=== PATIENT | male | born 1945 | race Caucasian/White ===

== ENCOUNTER 2019-05-24 20:50 | Inpatient (IN) | payer OTHER, MEDICARE ==
[~2019-05-24] VITALS: Ht 190.5 cm; Wt 142.3 kg
[~2019-05-24 20:50] MED LIST: AMLO10 PO; AMLO5 PO; ASPI325 PO; ATOR10 PO; Ativan1 MG PO; CALC.25 PO; CLIN150 PO; Cosopt Plus10 ML BOTHEYES; DILT180 PO; DOC250 PO; FERR325 PO; FISH1000 PO; FURO40 PO; GABA300 PO; GABA600 PO; GLIP10 PO; GLIP5 PO; HYDCHL12.5 PO; INSULANI SC; LEVFLO500 PO; LEVSOD100 PO; LORA1 PO; METH10 PO; METO100 PO; METO50 PO; OMEG1CAP30 PO; OXYACE5T PO; PRAZ5 PO; ROSU10TA PO; SENN187 PO; SERT100 PO; WARF5 PO
[2019-05-24 21:10] LABS: Calcium, Ionized (POC) 1.19 mmol/L (1.10-1.46); Chloride (POC) 110 mmol/L (98-108); Creatinine (POC) 5.4 mg/dL (0.8-1.3); Glucose (ISTAT POC) 224 mg/dL (70-99); Hemoglobin (POC) 10.2 g/dL (13.5-17.5); Potassium (POC) 4.4 mmol/L (3.5-5.5); Sodium (POC) 141 mmol/L (135-148); Total CO2 (POC) 20 mmol/L (21-32)
[2019-05-24 21:16] LABS: BASOPHILS ABSOLUTE AUTO 0.02 K/mm3 (0.00-0.23); BASOPHILS PERCENT AUTO 0 % (0-2); EOSINOPHILS ABSOLUTE AUTO 0.26 K/mm3 (0.00-0.68); EOSINOPHILS PERCENT AUTO 3 % (0-6); Hematocrit 32.5 % (37.0-53.0); Hemoglobin 10.5 g/dL (13.5-17.5); IMMATURE GRAN ABSOLUTE AUTO 0.05 K/mm3 (0.00-0.10); IMMATURE GRAN PERCENT AUTO 1 % (0-1); LYMPHOCYTES PERCENT AUTO 14 % (21-46); MONOCYTES ABSOLUTE AUTO 0.63 K/mm3 (0.16-1.47); MONOCYTES PERCENT AUTO 6 % (4-13); Mean Corpuscular HGB 31.3 pg (26.0-34.0); Mean Corpuscular HGB Conc 32.3 g/dL (31.5-36.5); Mean Corpuscular Volume 97 fL (80-100); Mean Platelet Volume 11.9 fL (9.1-12.4); NEUTROPHILS ABSOLUTE AUTO 7.66 K/mm3 (1.96-9.15); NEUTROPHILS PERCENT AUTO 76 % (41-73); Platelet Count 114 K/mm3 (150-400); RDW Coefficient Variation 12.7 % (11.7-14.2); RDW Standard Deviation 44.8 fL (35.1-46.3); Red Blood Cell Count 3.36 M/mm3 (4.30-5.90); White Blood Cell Count 10.02 K/mm3 (4.00-11.30)
[2019-05-24 21:35] LABS: Alanine Aminotransfer (ALT/SGP 16 U/L (12-78); Albumin, Blood 3.1 g/dL (3.4-5.0); Albumin/Globulin Ratio 0.8 (0.8-1.8); Alk Phos 56 U/L (50-136); Anion Gap 12 mmol/L (6-16); Aspartate Aminotrans (AST/SGOT 14 U/L (12-37); Bilirubin, Total 0.2 mg/dL (0.1-1.0); Blood Urea Nitrogen 67 mg/dL (8-24); Bun/Creatinine Ratio 15.8 (12.0-20.0); CO2, Blood 19 mmol/L (21-32); Calcium, Blood 8.4 mg/dL (8.5-10.1); Chloride, Blood 112 mmol/L (98-108); Creatinine, Blood 4.23 mg/dL (0.60-1.20); Globulin, Blood 3.9 g/dL (2.2-4.0); Glomerular Filtration Rate 15 (60-); Glucose, Blood 230 mg/dL (70-99); Potassium, Blood 4.4 mmol/L (3.5-5.5); Sodium, Blood 143 mmol/L (136-145); Troponin I 0.048 ng/mL (0.000-0.040)
[2019-05-24] MEDS ORDERED: Aspir 8181 MG PO (21:35)
[2019-05-24] MEDS ORDERED: THERA-D2000 UNIT PO (21:36)
[2019-05-24] MEDS ORDERED: Zantac150 MG PO (21:36)
[2019-05-24] MEDS ORDERED: OXYC5 PO (21:38)
[2019-05-24] MEDS ORDERED: HYDR1TAB94 PO (21:41)
[2019-05-24] MEDS ORDERED: FURO40 PO (21:42)
[2019-05-24] MEDS ORDERED: Fergon240 M1 PO (21:44)
[2019-05-24 23:16] LABS: Uric Acid, Blood 7.4 mg/dL (3.5-7.2)
[2019-05-25 03:03] LABS: BASOPHILS ABSOLUTE AUTO 0.02 K/mm3 (0.00-0.23); BASOPHILS PERCENT AUTO 0 % (0-2); EOSINOPHILS ABSOLUTE AUTO 0.02 K/mm3 (0.00-0.68); EOSINOPHILS PERCENT AUTO 0 % (0-6); Hematocrit 31.7 % (37.0-53.0); IMMATURE GRAN ABSOLUTE AUTO 0.03 K/mm3 (0.00-0.10); IMMATURE GRAN PERCENT AUTO 0 % (0-1); LYMPHOCYTES ABSOLUTE AUTO 0.79 K/mm3 (0.84-5.20); LYMPHOCYTES PERCENT AUTO 9 % (21-46); MONOCYTES ABSOLUTE AUTO 0.64 K/mm3 (0.16-1.47); MONOCYTES PERCENT AUTO 7 % (4-13); Mean Corpuscular HGB 30.4 pg (26.0-34.0); Mean Corpuscular HGB Conc 31.5 g/dL (31.5-36.5); Mean Corpuscular Volume 96 fL (80-100); Mean Platelet Volume 11.5 fL (9.1-12.4); NEUTROPHILS ABSOLUTE AUTO 7.32 K/mm3 (1.96-9.15); NEUTROPHILS PERCENT AUTO 83 % (41-73); Platelet Count 103 K/mm3 (150-400); RDW Coefficient Variation 12.9 % (11.7-14.2); RDW Standard Deviation 45.1 fL (35.1-46.3); Red Blood Cell Count 3.29 M/mm3 (4.30-5.90); White Blood Cell Count 8.82 K/mm3 (4.00-11.30)
[2019-05-25 03:19] LABS: Albumin/Globulin Ratio 0.8 (0.8-1.8); Bilirubin, Total 0.2 mg/dL (0.1-1.0); Bun/Creatinine Ratio 15.5 (12.0-20.0); Calcium, Blood 8.5 mg/dL (8.5-10.1); Creatinine, Blood 4.45 mg/dL (0.60-1.20); Globulin, Blood 3.7 g/dL (2.2-4.0); Magnesium, Blood 2.5 mg/dL (1.6-2.4); Potassium, Blood 4.9 mmol/L (3.5-5.5); Total Protein, Blood 6.7 g/dL (6.4-8.2)
--- NOTE | 2019-05-25 07:38 | NUR ---
SHIFT SUMMARY: PT ARRIVED TO PCU 13 APPRX THIS AM AT 0330. PT A+O, LS CLEAR BUT DIMINISHED. VSS. PT ANSWERED ALL QUESTIONS APPROPRIATELY, DENIED PAIN OR DISCOMFORT. HAS BEEN RESTING QUIETLY SINCE RIGHT AFTER ADMIT. REPORT GIVEN TO ONCOMING RN WARD AND KLEVER SANDOVAL.
--- NOTE | 2019-05-25 11:09 | NUR ---
ECHOCARDIOGRAM COMPLETED
--- NOTE | 2019-05-25 11:51 | NUR ---
Reviewed records, per Echocardiogram May 2012, the pt was in normal sinus rhythm. The pt was admitted in March 2014 for new onset afib with RVR, and syncopal episode. He was started on antiocoagulants at this time. Spoke with JAIME Treadwell at the [facility] in [facility] clinic. She states that the pt's last EKG in 2016 shows sinus rhythm with first degree AV block and PVCs. States that per their records, the pt had been on coumadin in 2013, but that it had been discontinued by Dr. Montoya in April 2014 because the atrial fibrillation had resolved.
[2019-05-25 12:19] LABS: Adenovirus Not Detected (NOT DETECT); Coronavirus 229E Not Detected (NOT DETECT); Coronavirus HKU1 Not Detected (NOT DETECT); Coronavirus NL63 Not Detected (NOT DETECT); Coronavirus OC43 Not Detected (NOT DETECT); Human Metapneumovirus Not Detected (NOT DETECT); Human Rhinovirus/Enterovirus Not Detected (NOT DETECT); Influenza A Not Detected (NOT DETECT); Influenza A/2009-H1 Not Detected (NOT DETECT); Influenza A/H1 Not Detected (NOT DETECT); Influenza A/H3 Not Detected (NOT DETECT); Influenza B Not Detected (NOT DETECT); Parainfluenza Virus 1 Not Detected (NOT DETECT); Parainfluenza Virus 2 Not Detected (NOT DETECT); Parainfluenza Virus 3 Not Detected (NOT DETECT); Parainfluenza Virus 4 Not Detected (NOT DETECT); Respiratory Syncytial Virus Not Detected (NOT DETECT)
[2019-05-25 12:20] LABS: Bordetella pertussis Not Detected (NOT DETECT); Chlamydophila pneumoniae Not Detected (NOT DETECT); Mycoplasma pneumoniae Not Detected (NOT DETECT)
[2019-05-25 17:09] LABS: Source, Urine Clean Catch
[2019-05-25 17:35] LABS: Bilirubin, Urine Neg (Neg); Blood, Urine 4+ (Neg); Glucose Qualitative, Urine 3+ (Neg); Ketones, Urine Neg (Neg); Leukocyte Esterase, Urine Neg (Neg); Nitrite, Urine Neg (Neg); Protein, Urine 3+ (Neg); Specific Gravity, Urine 1.015 (1.003-1.022); Urobilinogen, Urine NORM (Normal)
--- NOTE | 2019-05-25 17:51 | NUR ---
IN TO VISIT, FOLLOWED BY SILK SCREEN CUTTER, RECOMMENDED PE TEST, COMPLETED, LARGE PT HARD TO STAND WITHOUT WALKER, 3l VIA NC, CALL LIGHT IN REACH, SALINE LOCKED, WILL CONTINUE TO MONTIOR AND TREAT UNTIL SBAR REPORT GIVEN TO PARLOR CHAPERONE
[2019-05-25 18:22] LABS: Appearance, Urine Clear (Clear); Color, Urine Yellow (P-Yellow)
[2019-05-25 18:23] LABS: Bacteria Mod /hpf; Mucus Light (0-Heavy); Red Blood Cells, Urine 0-2 /hpf (0-2); Squamous Epithelial Cells Few /hpf (Few)
[2019-05-26 04:21] LABS: BASOPHILS ABSOLUTE AUTO 0.02 K/mm3 (0.00-0.23); BASOPHILS PERCENT AUTO 0 % (0-2); EOSINOPHILS ABSOLUTE AUTO 0.19 K/mm3 (0.00-0.68); EOSINOPHILS PERCENT AUTO 3 % (0-6); Hematocrit 28.3 % (37.0-53.0); Hemoglobin 9.1 g/dL (13.5-17.5); IMMATURE GRAN ABSOLUTE AUTO 0.01 K/mm3 (0.00-0.10); IMMATURE GRAN PERCENT AUTO 0 % (0-1); LYMPHOCYTES ABSOLUTE AUTO 1.72 K/mm3 (0.84-5.20); LYMPHOCYTES PERCENT AUTO 29 % (21-46); MONOCYTES ABSOLUTE AUTO 0.47 K/mm3 (0.16-1.47); MONOCYTES PERCENT AUTO 8 % (4-13); Mean Corpuscular HGB 31.4 pg (26.0-34.0); Mean Corpuscular HGB Conc 32.2 g/dL (31.5-36.5); Mean Corpuscular Volume 98 fL (80-100); Mean Platelet Volume 11.9 fL (9.1-12.4); NEUTROPHILS ABSOLUTE AUTO 3.46 K/mm3 (1.96-9.15); NEUTROPHILS PERCENT AUTO 59 % (41-73); Platelet Count 82 K/mm3 (150-400); RDW Coefficient Variation 13.1 % (11.7-14.2); White Blood Cell Count 5.87 K/mm3 (4.00-11.30)
[2019-05-26 04:39] LABS: Bun/Creatinine Ratio 15.5 (12.0-20.0); Calcium, Blood 8.6 mg/dL (8.5-10.1); Creatinine, Blood 4.52 mg/dL (0.60-1.20); Potassium, Blood 4.3 mmol/L (3.5-5.5)
--- NOTE | 2019-05-26 04:51 | NUR ---
SHIFT SUMMARY: PATIENT VSS, CALL LIGHT WITHIN REACH AND USED APPROPRIATLY, TURNED O2 DOWN TO 1L/MIN WHILE SLEEPING. NO OTHER ISSUES NOTED.
--- NOTE | 2019-05-26 07:30 | NUR ---
ASSUMED CARE: PT RESTING QUIETLY, NO ACUTE NEEDS OR DISTRESS AT THIS TIME.
--- NOTE | 2019-05-26 14:00 | NUR ---
DR NEWMAN CAME TO SEE PT AND AWARE THAT PT WAS HAVING DIZZINESS WITH ACTIVITY. ORTHOS ORDERED AND RELAYED TO DR NEWMAN. DR ALSO AWARE THAT PT'S HR TOUCHED INTO 140S WITH ACTIVITY.
--- NOTE | 2019-05-26 16:01 | NUR ---
DR NEWMAN CALLED AND STATED SHE IS CANCELLING DC UNTIL DR MILLS CAN CONSULT. [facility]ART [facility] AWARE. DR MILLS HAS BEEN MADE AWARE OF CONSULT WELL. OT WORKED WITH PT AND NOTED SAME PATTERN OF INCREASE IN HR UP TO 150S WITH ACTIVITY. PT BACK TO BED, IV FLUIDS RUNNING PER ORDERS.
--- NOTE | 2019-05-26 17:42 | NUR ---
SHIFT SUMMARY: AWAITING DR MILLS CONSULT. PT WORKED WITH PT/OT THIS SHIFT AND BECAME TACHYCARDIC AND DYSPNEIC WITH ACTIVITY. PLAN IS FOR ZIO PATCH PRIOR TO DC. NO FURTHER NEEDS OR CONCERNS AT THIS TIME.
[2019-05-27 04:35] LABS: BASOPHILS ABSOLUTE AUTO 0.01 K/mm3 (0.00-0.23); BASOPHILS PERCENT AUTO 0 % (0-2); EOSINOPHILS ABSOLUTE AUTO 0.17 K/mm3 (0.00-0.68); EOSINOPHILS PERCENT AUTO 3 % (0-6); Hematocrit 28.3 % (37.0-53.0); IMMATURE GRAN ABSOLUTE AUTO 0.02 K/mm3 (0.00-0.10); IMMATURE GRAN PERCENT AUTO 0 % (0-1); LYMPHOCYTES PERCENT AUTO 20 % (21-46); MONOCYTES ABSOLUTE AUTO 0.46 K/mm3 (0.16-1.47); MONOCYTES PERCENT AUTO 8 % (4-13); Mean Corpuscular HGB Conc 31.8 g/dL (31.5-36.5); Mean Platelet Volume 11.5 fL (9.1-12.4); NEUTROPHILS ABSOLUTE AUTO 4.04 K/mm3 (1.96-9.15); NEUTROPHILS PERCENT AUTO 69 % (41-73); Platelet Count 85 K/mm3 (150-400); RDW Coefficient Variation 12.9 % (11.7-14.2); RDW Standard Deviation 43.9 fL (35.1-46.3)
--- NOTE | 2019-05-27 04:44 | NUR ---
SHIFT SUMMARY: PATIENT LEFT SHOULDER PAINFUL, HEATING PAD PROVIDED AND PATIENT STATED RELIEF. 24 HOUR URINE COLLECT STARTED AT APPROX 0000. PATIENT VSS, CALL LIGHT WITHIN REACH AND USED APPROPRIATLY, BED LOW AND LOCKED.
[2019-05-27 04:46] LABS: Mean Corpuscular Volume 94 fL (80-100)
[2019-05-27 04:55] LABS: Alanine Aminotransfer (ALT/SGP 19 U/L (12-78); Albumin, Blood 2.9 g/dL (3.4-5.0); Albumin/Globulin Ratio 0.9 (0.8-1.8); Alk Phos 46 U/L (50-136); Anion Gap 8 mmol/L (6-16); Aspartate Aminotrans (AST/SGOT 11 U/L (12-37); Bilirubin, Direct <0.1 mg/dL (0.0-0.3); Bilirubin, Indirect Unable to Calculate mg/dL (0.1-0.7); Bilirubin, Total 0.3 mg/dL (0.1-1.0); Blood Urea Nitrogen 75 mg/dL (8-24); Bun/Creatinine Ratio 16.9 (12.0-20.0); CO2, Blood 20 mmol/L (21-32); CPK Creatine Kinase 182 U/L (39-308); Calcium, Blood 8.7 mg/dL (8.5-10.1); Chloride, Blood 115 mmol/L (98-108); Creatinine, Blood 4.44 mg/dL (0.60-1.20); Globulin, Blood 3.3 g/dL (2.2-4.0); Glomerular Filtration Rate 14 (60-); Glucose, Blood 150 mg/dL (70-99); Magnesium, Blood 2.4 mg/dL (1.6-2.4); Phosphorus, Blood 5.3 mg/dL (2.5-4.9); Potassium, Blood 4.6 mmol/L (3.5-5.5); Sodium, Blood 143 mmol/L (136-145); Total Protein, Blood 6.2 g/dL (6.4-8.2); Uric Acid, Blood 6.9 mg/dL (3.5-7.2)
--- NOTE | 2019-05-27 17:32 | NUR ---
SUMMARY- PT ALERT AND ORIENTED X3, SLEEPY. FOLLOWS COMMANDS, SLOW, ABLE TO GET UP TO CHAIR X2 TODAY. PT HELD OFF THIS AM RELATED TO PERIODS OF HR INCERASING INTO 130'S. NO SYMPTOMS. CALLED DR SHIN WHO ASKED RN TO CALL CARDIO. CALLED ALEIDA AGAIN AND NOTIFIED THAT CARDIO SIGHNED OFF. RN INSTRUCTED TO CALL AGAIN IF HR INCREASED OVER 130- [id number] HR OVER 130 FOR 10 MINUTES AND SUBSIDED, DID NOT CALL RELATED TO SELF RESOLVE. PT TOLERATING FOOD AND FLUIDS. COLLECTING 24HR URINE UNTIL 05/27 2345. NS @75. NO SYNCOPAL EPISODES TODAY. LUNGS CLEAR, LE EDEMA +2. PAIN IN R HIP AND L SHOULDER 3/10 MOST OF THE DAY. MEDICATED ONCE VICODIN IN AM WITH RELEIF, THE REST OF THE DAY PT DECLINES PAIN MEDS.
[2019-05-28 01:52] LABS: Protein, Urine Quantitative 57.5 mg/dL (0.0-11.9)
--- NOTE | 2019-05-28 03:01 | NUR ---
ASSUMED CARE APPROXIMATELY 1900; PT A&O; PT USES URINAL IN BED HE REPORTS SOME HESITATION STANDING DUE TO HX OF SYNCOPAL EPISODE AT HOME; C/O CHRONIC HIP PAIN; PT REPOSITIONED AND MEDICATION PER ORDERS; DENIES CHEST PAIN; PT ON CURRENTLY ON RA W/ O2 SATS >92; VSS; 24 HOUR URINE COLLECTION COMPLETED @ 2345; 1500 ML TOTAL OUTPUT; PT DENIED REPOSTITIONING AT TIMES; SLEPT FOR GREATER THAN 6 HOURS IN BETWEEN INTERVENTIONS; CALL LIGHT IN REACH; BED IN LOWEST POSITION; WILL CONTINUE TO MONITOR AND ASSESS UNTIL HAND OFF TO DAY SHIFT RN.
[2019-05-28 04:35] LABS: BASOPHILS ABSOLUTE AUTO 0.02 K/mm3 (0.00-0.23); BASOPHILS PERCENT AUTO 0 % (0-2); EOSINOPHILS ABSOLUTE AUTO 0.14 K/mm3 (0.00-0.68); EOSINOPHILS PERCENT AUTO 3 % (0-6); Hematocrit 27.3 % (37.0-53.0); Hemoglobin 8.7 g/dL (13.5-17.5); IMMATURE GRAN ABSOLUTE AUTO 0.03 K/mm3 (0.00-0.10); IMMATURE GRAN PERCENT AUTO 1 % (0-1); LYMPHOCYTES ABSOLUTE AUTO 1.02 K/mm3 (0.84-5.20); LYMPHOCYTES PERCENT AUTO 18 % (21-46); MONOCYTES ABSOLUTE AUTO 0.41 K/mm3 (0.16-1.47); MONOCYTES PERCENT AUTO 7 % (4-13); Mean Corpuscular HGB 30.9 pg (26.0-34.0); Mean Corpuscular HGB Conc 31.9 g/dL (31.5-36.5); Mean Platelet Volume 11.8 fL (9.1-12.4); NEUTROPHILS ABSOLUTE AUTO 3.97 K/mm3 (1.96-9.15); NEUTROPHILS PERCENT AUTO 71 % (41-73); Platelet Count 85 K/mm3 (150-400); Red Blood Cell Count 2.82 M/mm3 (4.30-5.90); White Blood Cell Count 5.59 K/mm3 (4.00-11.30)
[2019-05-28 04:47] LABS: Mean Corpuscular Volume 97 fL (80-100)
[2019-05-28 04:56] LABS: Albumin, Blood 2.8 g/dL (3.4-5.0); Anion Gap 8 mmol/L (6-16); Blood Urea Nitrogen 65 mg/dL (8-24); Bun/Creatinine Ratio 16.7 (12.0-20.0); CO2, Blood 18 mmol/L (21-32); Calcium, Blood 8.4 mg/dL (8.5-10.1); Chloride, Blood 115 mmol/L (98-108); Creatinine, Blood 3.89 mg/dL (0.60-1.20); Glomerular Filtration Rate 16 (60-); Glucose, Blood 151 mg/dL (70-99); Magnesium, Blood 2.3 mg/dL (1.6-2.4); Phosphorus, Blood 4.6 mg/dL (2.5-4.9); Potassium, Blood 4.3 mmol/L (3.5-5.5); Sodium, Blood 141 mmol/L (136-145)
--- NOTE | 2019-05-28 08:09 | NUR ---
AM NOTE. ASSUMED CARE OF PT APROX 0700. PT IS A&Ox4 AND HAS A FLAT AFFECT. PT WAS ADMITTED FOR CHF EXAC, AND HAS AFIB W/BBB, PT IS CURRENTLY IN THE 120'S-130'S. PT'S HR INCREASED TO THE 150'S-160'S WHEN HE GOT UP TO THE CHAIR FROM BED. PT'S OTHER VS STABLE AT THIS TIME, PT STATES HE FELT A LITTLE "OUT OF BREATH" BUT NO DIZZINESS OR LIGHTHEADEDNESS NOTED. PT'S HR TRENDED BACK DOWN TO THE 120'S AFTER APROX 2 MINS OF REST IN THE CHAIR. PT'S RIGHT LEG HAS 1+ EDEMA, PT'S LLE HAS TRACE. L/S CLEAR T/O, PT IS ON RA WITH O2 SATS >95%. BT PRESENT AND NORMOACITVE, ABD IS SLIGHTLY FIRM AND NONTENDER TO PALP. WILL CONTINUE TO MONITOR.
--- NOTE | 2019-05-28 17:46 | NUR ---
SHIFT SUMMARY. PT'S VS HAVE BEEN STABLE T/O SHIFT EXCEPT HIS HEART RATE. PT IS IN AFIB W/BBB, PT HAS BEEN MAINTAINING RATES IN THE 90'S-110'S EXCEPT WITH ACTIVITY HIS HEART RATE INCREASES TO THE 130'S-150'S. PROVIDER WAS MADE AWARE OF THIS AND ORDERED CARDIZEM IV PUSH AND GTT IF HIS RATE DID NOT IMPROVE. PT'S RATE IMPROVED AFTER THE PUSH SO THE DRIP WAS NOT STARTED. PT HAS BEEN GETTING UP IN TO THE CHAIR FOR MEALS AND USING THE COMMODE. PT HAS NOT HAD A BM THIS SHIFT, PT C/O ABOUT FEELING "STOPPED UP." PROVIDER AWARE AND ADDITIONAL ORDERS OBTAINED. PT DENIES ANY CHEST PAIN/PRESSURE, N/V OR INCREASED SOB. PT HAS BEEN ON RA T/O SHIFT. CALL LIGHT IN REACH, BED IS LOCKED AND LOW WILL CONTINUE TO MONITOR UNTIL REPORT IS GIVEN TO ONCOMING RN.
--- NOTE | 2019-05-28 18:31 | NUR ---
PT UPDATE... PT WAS PLACED ON CARDIZEM GTT D/T THE PT'S INCREASED HEART RATE OF 150'S-160'S WITH ACTIVITY. WILL CONTINUE TO MONITOR.
[2019-05-29 04:17] LABS: BASOPHILS ABSOLUTE AUTO 0.01 K/mm3 (0.00-0.23); BASOPHILS PERCENT AUTO 0 % (0-2); EOSINOPHILS ABSOLUTE AUTO 0.15 K/mm3 (0.00-0.68); EOSINOPHILS PERCENT AUTO 3 % (0-6); Hematocrit 27.2 % (37.0-53.0); Hemoglobin 8.8 g/dL (13.5-17.5); IMMATURE GRAN ABSOLUTE AUTO 0.02 K/mm3 (0.00-0.10); IMMATURE GRAN PERCENT AUTO 0 % (0-1); LYMPHOCYTES ABSOLUTE AUTO 0.82 K/mm3 (0.84-5.20); LYMPHOCYTES PERCENT AUTO 15 % (21-46); MONOCYTES PERCENT AUTO 7 % (4-13); Mean Corpuscular HGB 31.3 pg (26.0-34.0); Mean Corpuscular HGB Conc 32.4 g/dL (31.5-36.5); Mean Corpuscular Volume 97 fL (80-100); Mean Platelet Volume 11.9 fL (9.1-12.4); NEUTROPHILS ABSOLUTE AUTO 4.07 K/mm3 (1.96-9.15); NEUTROPHILS PERCENT AUTO 74 % (41-73); Platelet Count 87 K/mm3 (150-400); RDW Coefficient Variation 13.1 % (11.7-14.2); RDW Standard Deviation 45.9 fL (35.1-46.3); Red Blood Cell Count 2.81 M/mm3 (4.30-5.90); White Blood Cell Count 5.47 K/mm3 (4.00-11.30)
[2019-05-29 04:37] LABS: Albumin, Blood 2.8 g/dL (3.4-5.0); Anion Gap 8 mmol/L (6-16); Blood Urea Nitrogen 57 mg/dL (8-24); Bun/Creatinine Ratio 15.8 (12.0-20.0); CO2, Blood 19 mmol/L (21-32); Calcium, Blood 8.6 mg/dL (8.5-10.1); Chloride, Blood 114 mmol/L (98-108); Glomerular Filtration Rate 18 (60-); Glucose, Blood 165 mg/dL (70-99); Potassium, Blood 4.1 mmol/L (3.5-5.5); Sodium, Blood 141 mmol/L (136-145)
--- NOTE | 2019-05-29 06:34 | NUR ---
SHIFT SUMMARY PT HAS REMAINED AOX4 THROUGHOUT SHIFT. PLEASANT AND COOPERATIVE WITH CARE. PT HAS RESTED IN BED THROUGHOUT THE NIGHT AND APPEARS TO HAVE SLEPT WELL. O2 SATS HAVE REMAINED >90% ON RA. HEART RHYTHM HAS REMAINED IN AFIB THROUGHOUT THE NIGHT WITH RATE RANGING FROM 90s-130s. CARDIZEM DRIP REMAINS INFUSING AND TITRATED PER PROTOCOL. PT CONTINUES TO USE URINAL WITH MINIMAL ASSISTANCE IN BED. PT DOES REQUIRE ENCOURAGEMENT TO ASSIST WITH ADLs AND MOVEMENT TOLERATED. PT MEDICATED ONCE FOR PAIN THAT DECREASED WITH ORDERED MEDICATIONS. NO OTHER CHANGES NOTED FROM INITIAL ASSESSMENT, WILL CONTINUE TO MONITOR AND REPORT TO ONCOMING SHIFT RN. BED IN LOW POSITION,CALL LIGHT IN REACH.
--- NOTE | 2019-05-29 07:57 | NUR ---
AM NOTE. ASSUMED CARE OF PT APROX 0700, PT IS A&Ox4 AND WAS ADMITTED FOR SYNCOPE AND A FALL AT HOME. PT WAS FOUND TO BE IN AFIB W/BBB, PT IS CURRENTLY ON A CARDIZEM GTT AT 10MG/HR, PT IS TOLERATING THIS WELL, PT'S BP WAS 130/88 HR 117. PT HAS 1+ EDEMA TO HIS BLE, THIS HAS IMPROVED FROM YESTERDAY. PT HAS NOT HAD BM SINCE 05/25, BOWEL CARE STARTED, WILL CONTINUE TO MONITOR. BT PRESENT AND HYPOACTIVE, ABD IS SLIGHTLY FIRM BUT NONTENDER TO PALP. L/S CLEAR AND DIM T/O, PT IS ON RA WITH O2 SATS >94%. WILL CONTINUE TO MONITOR.
--- NOTE | 2019-05-29 14:00 | NUR ---
Initial Visit: Palliative Care Consult for AD/POLST and Advanced Care Planning. Pt is A&Ox4 and reports a tolerable 3/10 pain in his chest when he breathes. Pt denies dyspnea and anxiety at this time. Engaged in therapeutic discussion regarding Advanced Care Planning and AD/POLST. Pt lives at home alone and his friend Chrissy comes to his house and helps with needs. Pt reports struggling with bathing and has difficulty getting in and out of bath tub. Pt reports he is safe with dressing. Pt reports using a cane or a walker when ambulating. Educated Pt on disease process and the importance of routine conversations with PCP in order to plan accordingly. Discussed AD/POLST and Pt is unsure if he has completed one. [facility]. Instruced Pt a request will be faxed and Pt is agreeable to completing AD/POLST if [facility] does not have one. Pt reports no other concerns at this time. Spoke with bedside nurse Ryann and discussed case. Ryann reports no concerns at this time. Palliative Care will remain available.
--- NOTE | 2019-05-29 18:10 | NUR ---
SHIFT SUMMARY. NO ACUTE NEGATIVE CHANGES NOTED THIS SHIFT. PT IS ON CARDIZEM GTT AT 5MG/HR WITH RATE IN THE 80'S-90'S. PT'S BP IS STABLE. PT GOT UP AND WALKED INTO THE BATHROOM FOR A SHOWER TODAY, PT TOLERATED THIS WELL. PT'S DAUGHTER WAS AT THE BEDSIDE FOR A FEW HOURS TODAY. PT DENIES ANY CHEST PAIN/PRESSURE, N/V OR INCREASED SOB. PT HAS BEEN ON RA T/O SHIFT. CALL LIGHT IN REACH, BED IS LOCKED AND LOW WILL CONTINUE TO MONITOR UNTIL REPORT IS GIVEN TO ONCOMING RN.
[2019-05-30 04:14] LABS: BASOPHILS ABSOLUTE AUTO 0.02 K/mm3 (0.00-0.23); BASOPHILS PERCENT AUTO 0 % (0-2); EOSINOPHILS ABSOLUTE AUTO 0.23 K/mm3 (0.00-0.68); EOSINOPHILS PERCENT AUTO 4 % (0-6); Hematocrit 26.5 % (37.0-53.0); Hemoglobin 8.5 g/dL (13.5-17.5); IMMATURE GRAN ABSOLUTE AUTO 0.02 K/mm3 (0.00-0.10); IMMATURE GRAN PERCENT AUTO 0 % (0-1); LYMPHOCYTES ABSOLUTE AUTO 0.92 K/mm3 (0.84-5.20); LYMPHOCYTES PERCENT AUTO 16 % (21-46); MONOCYTES ABSOLUTE AUTO 0.46 K/mm3 (0.16-1.47); MONOCYTES PERCENT AUTO 8 % (4-13); Mean Corpuscular HGB 30.6 pg (26.0-34.0); Mean Corpuscular HGB Conc 32.1 g/dL (31.5-36.5); Mean Corpuscular Volume 95 fL (80-100); Mean Platelet Volume 11.9 fL (9.1-12.4); NEUTROPHILS ABSOLUTE AUTO 3.95 K/mm3 (1.96-9.15); NEUTROPHILS PERCENT AUTO 71 % (41-73); Platelet Count 93 K/mm3 (150-400); RDW Coefficient Variation 13.3 % (11.7-14.2); RDW Standard Deviation 46.1 fL (35.1-46.3); Red Blood Cell Count 2.78 M/mm3 (4.30-5.90)
[2019-05-30 04:31] LABS: Albumin, Blood 2.7 g/dL (3.4-5.0); Anion Gap 8 mmol/L (6-16); Blood Urea Nitrogen 56 mg/dL (8-24); Bun/Creatinine Ratio 15.4 (12.0-20.0); CO2, Blood 19 mmol/L (21-32); Calcium, Blood 8.4 mg/dL (8.5-10.1); Chloride, Blood 114 mmol/L (98-108); Creatinine, Blood 3.64 mg/dL (0.60-1.20); Glomerular Filtration Rate 18 (60-); Glucose, Blood 147 mg/dL (70-99); Phosphorus, Blood 3.4 mg/dL (2.5-4.9); Potassium, Blood 4.4 mmol/L (3.5-5.5); Sodium, Blood 141 mmol/L (136-145)
--- NOTE | 2019-05-30 05:46 | NUR ---
SHIFT SUMMARY PT HAS REMAINED AOX4 THROUGHOUT SHIFT. VSS. PLEASANT AND COOPERATIVE WITH CARE. PT HAS RESTED WELL THROUGHOUT THE NIGHT, WAKING EASILY FOR CARE AND VITAL SIGNS. AMBULATED WELL WITH ONE PERSON ASSIST AND FWW TO THE BEDSIDE COMMODE FOR BM WITH SUCCESS. PT REPORTS THAT HE FEELS MUCH BETTER AND DOES NOT HAVE ANY MORE ABDOMINAL PAIN AFTER BOWEL MOVEMENT. HEART RHYTHM HAS REMAINED IN ATRIAL FIBRILLATION WITH A RATE IN THE 80-90s SINCE APPROXIMATELY 2300 LAST NIGHT. CARDIZEM DRIP PLACED ON STANDBY AT 2330 LAST NIGHT. O2 SATS HAVE REMAINED >90% ON RA, PT DENIES DYSPNEA. MEDICATED ONCE FOR PAIN TO R HIP THAT DECREASED WITH ORDERED PAIN MEDICATION AND REPOSITIONING. CONTINUES TO USE URINAL INDEPENDENTLY IN BED. NO OTHER CHANGES NOTED FROM INITIAL ASSESSMENT. WILL CONTINUE TO MONITOR AND REPORT TO ONCOMING SHIFT RN. BED IN LOW POSITION, CALL LIGHT IN REACH.
[2019-05-30 08:08] LABS: ANTIGLOMERULAR BM AB 2 units (0-20)
--- NOTE | 2019-05-30 08:15 | NUR ---
AM NOTE. ASSUMED CARE OF PT APROX 0700. PT IS A&Ox4 AND WAS ADMITTED FOR SYNCOPE. PT IS POSSIBLE D/C HOME TODAY. PT IS IN AFIB WITH RATE CONTROLLED NOW ON PO MEDICATIONS. PT'S HR IS 90'S-100'S PER SHERIFF DETECTIVE. PT'S VS STABLE, PT DENIES CHEST PAIN/PRESSURE, N/V OR SOB. PT ALSO DENIES ANY LIGHTHEADED/DIZZNESS. PT LIVES AT HOME ALONE WITH HELP FROM A FRIEND THAT STOPS BY "EVERY ONCE IN A WHILE" AND HELPS OUT. PT IS UP IN THE CHAIR HAVING BREAKFAST THIS AM. WILL CONTINUE TO MONITOR.
[2019-05-30 16:06] LABS: A/G RATIO 1.3 (0.7-1.7); ALBUMIN 3.3 g/dL (2.9-4.4); ALPHA-1-GLOBULIN 0.2 g/dL (0.0-0.4); ALPHA-2-GLOBULIN 0.6 g/dL (0.4-1.0); BETA GLOBULIN 0.7 g/dL (0.7-1.3); GLOBULIN, TOTAL 2.6 g/dL (2.2-3.9); IMMUNOGLOBULIN A, QN, SERUM 136 mg/dL (61-437); IMMUNOGLOBULIN G, QN, SERUM 945 mg/dL (700-1600); IMMUNOGLOBULIN M, QN, SERUM 36 mg/dL (15-143); M-SPIKE 0.3 g/dL (Not Observed); PROTEIN, TOTAL, SERUM 5.9 g/dL (6.0-8.5)
--- NOTE | 2019-05-30 17:44 | NUR ---
SHIFT SUMMARY. NO ACUTE NEGATIVE CHANGES NOTED. PT'S HR HAS BEEN CONTROLLED IN THE 80'S-100'S. PT DENIES ANY CHEST PAIN/PRESSURE, N/V OR INCREASED SOB. PT DENIES ANY LIGHTHEADED/DIZZINESS WELL. PT IS TO D/C TO SNF TOMORROW. PT IS TO HAVE ZIO PATCH DELIVERED FROM THE [facility] PRIOR TO D/C. PT'S VS HAVE BEEN STABLE. CALL LIGHT IN REACH, BED IS LOCKED AND LOW WILL CONTINUE TO MONITOR UNTIL REPORT IS GIVEN TO ONCOMING RN.
--- NOTE | 2019-05-30 18:05 | NUR ---
PT UPDATE... ORDER FOR ZIO PATCH/MONITOR FAXED TO [facility]ART [facility], PT IS TO HAVE ZIO PATCH PRIOR TO D/C TO SNF TOMORROW. WILL CONTINUE TO MONITOR.
[2019-05-31 03:45] LABS: BASOPHILS ABSOLUTE AUTO 0.01 K/mm3 (0.00-0.23); BASOPHILS PERCENT AUTO 0 % (0-2); EOSINOPHILS ABSOLUTE AUTO 0.27 K/mm3 (0.00-0.68); EOSINOPHILS PERCENT AUTO 4 % (0-6); Hematocrit 27.8 % (37.0-53.0); Hemoglobin 8.9 g/dL (13.5-17.5); IMMATURE GRAN ABSOLUTE AUTO 0.03 K/mm3 (0.00-0.10); IMMATURE GRAN PERCENT AUTO 1 % (0-1); LYMPHOCYTES ABSOLUTE AUTO 1.34 K/mm3 (0.84-5.20); LYMPHOCYTES PERCENT AUTO 21 % (21-46); MONOCYTES ABSOLUTE AUTO 0.61 K/mm3 (0.16-1.47); MONOCYTES PERCENT AUTO 9 % (4-13); Mean Corpuscular HGB 30.7 pg (26.0-34.0); Mean Corpuscular Volume 96 fL (80-100); Mean Platelet Volume 11.7 fL (9.1-12.4); NEUTROPHILS ABSOLUTE AUTO 4.24 K/mm3 (1.96-9.15); NEUTROPHILS PERCENT AUTO 65 % (41-73); Platelet Count 107 K/mm3 (150-400); RDW Coefficient Variation 13.3 % (11.7-14.2); RDW Standard Deviation 46.4 fL (35.1-46.3)
[2019-05-31 04:04] LABS: Albumin, Blood 2.8 g/dL (3.4-5.0); Anion Gap 6 mmol/L (6-16); Blood Urea Nitrogen 59 mg/dL (8-24); Bun/Creatinine Ratio 15.4 (12.0-20.0); CO2, Blood 20 mmol/L (21-32); Calcium, Blood 8.8 mg/dL (8.5-10.1); Chloride, Blood 115 mmol/L (98-108); Creatinine, Blood 3.83 mg/dL (0.60-1.20); Glomerular Filtration Rate 17 (60-); Glucose, Blood 147 mg/dL (70-99); Phosphorus, Blood 3.8 mg/dL (2.5-4.9); Potassium, Blood 4.8 mmol/L (3.5-5.5); Sodium, Blood 141 mmol/L (136-145)
--- NOTE | 2019-05-31 06:43 | NUR ---
SHIFT SUMMARY PT HAS REMAINED AOX4 THROUGHOUT SHIFT. VSS. PLEASANT AND COOPERATIVE WITH CARE. HEART RHYTHM HAS REMAINED IN ATRIAL FIBRILLATION WITH A RATE RANGING FROM 80-100s. O2 SATS HAVE REMAINED >90% ON RA. PT MEDICATED ONCE FOR PAIN TO HIP THAT DECREASED WITH ORDERED MEDICATION AND REPOSITIONING. PT CONTINUES TO REQUIRE ENCOURAGEMENT AND MOTIVATION TO PERFORM ADLs AND TURNING SELF IN BED TO PRESERVE SKIN INTEGRITY. NO OTHER CHANGES NOTED FROM INITIAL ASSESSMENT. WILL CONTINUE TO MONITOR AND REPORT TO ONCOMING SHIFT RN. BED IN LOW POSITION, CALL LIGHT IN REACH.
--- NOTE | 2019-05-31 10:45 | NUR ---
COMPLAINED OF CP when woken up (kept falling asleep), stated that it has been on going since coming to hospital, checked vs, informed dr received orders, performed ekg placed in front of chart, no significant changes noted, gave nitro after one dose pain resolved, bed in low position, pt resting quietly, call light in reach, will continue to monitor and treat
[2019-05-31 14:07] LABS: ANA DIRECT Negative (Negative); ANTIMYELOPEROXIDASE (MPO) ABS <9.0 U/mL (0.0-9.0); ANTIPROTEINASE 3 (PR-3) ABS <3.5 U/mL (0.0-3.5); ATYPICAL PANCA <1:20 titer (Neg:<1:20); CYTOPLASMIC (C-ANCA) <1:20 titer (Neg:<1:20); PERINUCLEAR (P-ANCA) <1:20 titer (Neg:<1:20)
[2019-05-31] MEDS ORDERED: METO25 PO (16:09)
[2019-05-31] MEDS ORDERED: NITR.4SL SL (16:12)
[2019-05-31] MEDS ORDERED: SODBIC650 PO (16:13)
--- NOTE | 2019-05-31 16:59 | NUR ---
left with transport via stretcher, belongings and paperwork with him, tele and iv (whole) discontinued, information r\medication, visit, treatments, recovery reviewed and sent with pt, alert and orintated, 2 person transfer (pivoted to stretcher with 2 person assist), alva called and SBAR report given, included was reminder to follow up with sleep study and heart monitor on chest
[2019-06-08 14:29] LABS: M-SPIKE, % Not Observed % (Not Observed); PROTEIN,TOTAL,URINE 37.4 mg/dL (Not Estab.)
== END 2019-05-31 16:47 | DRG 683 ==
LOC: ER 20:50 → PCU 20:51 → ERHOLD 20:51 → PCU 05-25 03:26
PROVIDERS: Emergency Medicine; Family Medicine; Internal Medicine; Internal Medicine Nephrology; Nurse Practitioner Acute Care; ADMIT Internal Medicine
DX: N17.9 Acute kidney failure, unspecified (principal); E87.2 Acidosis; I48.20 Chronic atrial fibrillation, unspecified; E86.0 Dehydration; N18.4 Chronic kidney disease, stage 4 (severe); E11.22 Type 2 diabetes mellitus with diabetic chronic kidney disease; E11.21 Type 2 diabetes mellitus with diabetic nephropathy; D63.1 Anemia in chronic kidney disease; I12.9 Hypertensive chronic kidney disease with stage 1 through stage 4 chronic kidney disease, or unspecified chronic kidney disease; N25.81 Secondary hyperparathyroidism of renal origin; D69.6 Thrombocytopenia, unspecified; E78.2 Mixed hyperlipidemia; E03.9 Hypothyroidism, unspecified; J44.9 Chronic obstructive pulmonary disease, unspecified; E66.9 Obesity, unspecified; G89.29 Other chronic pain; M54.9 Dorsalgia, unspecified; I27.20 Pulmonary hypertension, unspecified; E88.09 Other disorders of plasma-protein metabolism, not elsewhere classified; E86.9 Volume depletion, unspecified; E11.40 Type 2 diabetes mellitus with diabetic neuropathy, unspecified; K21.9 Gastro-esophageal reflux disease without esophagitis; F41.1 Generalized anxiety disorder; R55 Syncope and collapse; I71.2 Thoracic aortic aneurysm, without rupture; F43.10 Post-traumatic stress disorder, unspecified; F32.9 Major depressive disorder, single episode, unspecified; E83.39 Other disorders of phosphorus metabolism; Z66 Do not resuscitate; Z87.891 Personal history of nicotine dependence; Z85.46 Personal history of malignant neoplasm of prostate; Z79.84 Long term (current) use of oral hypoglycemic drugs; Z79.82 Long term (current) use of aspirin; Z79.899 Other long term (current) drug therapy
CPT/HCPCS: 0099U; 36415; 70450; 71046; 76770; 78582; 80047; 80048; 80053; 80069; 81001; 81050; 82248; 82550; 82784; 82947; 83516; 83520; 83735; 83880; 84100; 84156; 84165; 84166; 84484; 84550; 85014; 85025; 86038; 86256; 86334; 86335; 87086; 93005; 93010; 93306; 94640; 94760; 94762; 96372; 97110; 97116; 97162; 97166; 97530; 97535; 99285-25; A9270; A9270-GY; A9540; A9558; G0378; J0881; J1644; J7030

== ENCOUNTER → 2019-07-04 | Outpatient (CLI) | payer MEDICARE ==
[~2019-07-04] MED LIST changes: +Aspir 8181 MG PO; +Fergon240 M1 PO; +HYDCHL25 PO; +HYDR1TAB94 PO; +METO25 PO; +NITR.4SL SL; +OXYC5 PO; +SODBIC650 PO; +THERA-D2000 UNIT PO; +Zantac150 MG PO
[2019-07-04 07:36] LABS: Bun/Creatinine Ratio 9.4 (12.0-20.0); Calcium, Blood 8.8 mg/dL (8.5-10.1); Creatinine, Blood 3.72 mg/dL (0.60-1.20); Potassium, Blood 5.1 mmol/L (3.5-5.5)
== END | disposition home or self-care (01) ==
LOC: LAB RH 07:19 → EDSTATUS 09:49
PROVIDERS: Nurse Practitioner Adult Health
DX: I12.9 Hypertensive chronic kidney disease with stage 1 through stage 4 chronic kidney disease, or unspecified chronic kidney disease (principal); N18.9 Chronic kidney disease, unspecified
CPT/HCPCS: 80048

== ENCOUNTER 2019-08-13 16:46 | Inpatient (IN) | payer OTHER, MEDICARE ==
[~2019-08-13] VITALS: Ht 190.5 cm; Wt 136.9 kg
[~2019-08-13 16:46] MED LIST changes: -HYDCHL25 PO
[2019-08-13 17:30] LABS: BASOPHILS ABSOLUTE AUTO 0.03 K/mm3 (0.00-0.23); BASOPHILS PERCENT AUTO 0 % (0-2); EOSINOPHILS ABSOLUTE AUTO 0.14 K/mm3 (0.00-0.68); EOSINOPHILS PERCENT AUTO 2 % (0-6); Hematocrit 40.9 % (37.0-53.0); Hemoglobin 12.7 g/dL (13.5-17.5); IMMATURE GRAN ABSOLUTE AUTO 0.03 K/mm3 (0.00-0.10); IMMATURE GRAN PERCENT AUTO 0 % (0-1); LYMPHOCYTES ABSOLUTE AUTO 0.89 K/mm3 (0.84-5.20); LYMPHOCYTES PERCENT AUTO 13 % (21-46); MONOCYTES ABSOLUTE AUTO 0.56 K/mm3 (0.16-1.47); MONOCYTES PERCENT AUTO 8 % (4-13); Mean Corpuscular HGB 30.9 pg (26.0-34.0); Mean Corpuscular HGB Conc 31.1 g/dL (31.5-36.5); Mean Corpuscular Volume 100 fL (80-100); Mean Platelet Volume 11.5 fL (9.1-12.4); NEUTROPHILS ABSOLUTE AUTO 5.22 K/mm3 (1.96-9.15); NEUTROPHILS PERCENT AUTO 76 % (41-73); Platelet Count 126 K/mm3 (150-400); RDW Coefficient Variation 14.4 % (11.7-14.2); RDW Standard Deviation 51.8 fL (35.1-46.3); Red Blood Cell Count 4.11 M/mm3 (4.30-5.90); White Blood Cell Count 6.87 K/mm3 (4.00-11.30)
[2019-08-13 17:44] LABS: Albumin, Blood 3.3 g/dL (3.4-5.0); Albumin/Globulin Ratio 0.8 (0.8-1.8); Bilirubin, Total 0.6 mg/dL (0.1-1.0); Bun/Creatinine Ratio 11.8 (12.0-20.0); Calcium, Blood 9.2 mg/dL (8.5-10.1); Creatinine, Blood 3.98 mg/dL (0.60-1.20); Potassium, Blood 4.9 mmol/L (3.5-5.5); Total Protein, Blood 7.3 g/dL (6.4-8.2)
[2019-08-13 18:10] LABS: Source, Urine Clean Catch
[2019-08-13 18:16] LABS: Bilirubin, Urine Neg (Neg); Blood, Urine 4+ (Neg); Glucose Qualitative, Urine 2+ (Neg); Ketones, Urine 3+ (Neg); Leukocyte Esterase, Urine 3+ (Neg); Nitrite, Urine Neg (Neg); Protein, Urine 4+ (Neg); Specific Gravity, Urine 1.015 (1.003-1.022); Urobilinogen, Urine NORM (Normal)
[2019-08-13 18:32] LABS: Appearance, Urine Cloudy (Clear); Color, Urine Yellow (P-Yellow)
[2019-08-13 18:34] LABS: White Blood Cells, Urine TNTC /hpf (0-5)
[2019-08-13 18:35] LABS: Bacteria Many /hpf; Squamous Epithelial Cells Few /hpf (Few)
[2019-08-13] MEDS ORDERED: HYDCHL25 PO (21:27)
[2019-08-14] MEDS ORDERED: SERT100 PO (01:10)
--- NOTE | 2019-08-14 05:04 | NUR ---
QUALITY CONTROL OPERATOR SUMMARY NEW ADMIT FROM THE ED MICKIE. PT AAOX4 AND PLEASANT. BEDBOUND AT BASELINE. COMES IN WITH WEAKNESS AND FAILURE TO THRIVE. PT STATES HE HAS A FRIEND WHO IS HIS MAIN CAREGIVER BUT STATED SHE HAS BEEN SICK THE LAST 2 DAYS AND HAS NOT BEEN ABLE TO ASSIST HIM. DUE TO PT BEING BEDBOUND, PT HAS SPENT LAST 2 DAYS AT HOME ALONE WITH NO WAY TO GET FOOD/WATER. PT ALSO STATES HE HAS WOOD HEAT AT HOME AND HAS NOT BEEN ABLE TO HEAT HIS HOME. CBG 59 WHEN PT ARRIVED TO FLOOR, GIVEN ORANGE JUICE. CBG RECHECK 92. PT HAS BEEN INCONTINENT OF STOOL BUT IS ABLE TO USE URINAL. RESTARTED ON HOME MEDS PT HAS NOT TAKEN MEDS IN 2-3 DAYS. VSS, WILL CONTINUE TO MONITOR.
[2019-08-14 05:37] LABS: BASOPHILS ABSOLUTE AUTO 0.02 K/mm3 (0.00-0.23); BASOPHILS PERCENT AUTO 0 % (0-2); EOSINOPHILS ABSOLUTE AUTO 0.21 K/mm3 (0.00-0.68); EOSINOPHILS PERCENT AUTO 4 % (0-6); Hematocrit 37.3 % (37.0-53.0); Hemoglobin 11.7 g/dL (13.5-17.5); IMMATURE GRAN ABSOLUTE AUTO 0.01 K/mm3 (0.00-0.10); IMMATURE GRAN PERCENT AUTO 0 % (0-1); LYMPHOCYTES ABSOLUTE AUTO 1.17 K/mm3 (0.84-5.20); LYMPHOCYTES PERCENT AUTO 19 % (21-46); MONOCYTES ABSOLUTE AUTO 0.58 K/mm3 (0.16-1.47); MONOCYTES PERCENT AUTO 10 % (4-13); Mean Corpuscular HGB Conc 31.4 g/dL (31.5-36.5); Mean Corpuscular Volume 99 fL (80-100); Mean Platelet Volume 11.5 fL (9.1-12.4); NEUTROPHILS ABSOLUTE AUTO 4.03 K/mm3 (1.96-9.15); NEUTROPHILS PERCENT AUTO 67 % (41-73); Platelet Count 118 K/mm3 (150-400); RDW Coefficient Variation 14.4 % (11.7-14.2); RDW Standard Deviation 51.8 fL (35.1-46.3); Red Blood Cell Count 3.78 M/mm3 (4.30-5.90); White Blood Cell Count 6.02 K/mm3 (4.00-11.30)
[2019-08-14 05:56] LABS: Bun/Creatinine Ratio 11.8 (12.0-20.0); Calcium, Blood 8.6 mg/dL (8.5-10.1); Creatinine, Blood 3.82 mg/dL (0.60-1.20); Potassium, Blood 4.7 mmol/L (3.5-5.5)
--- NOTE | 2019-08-14 15:57 | NUR ---
Spiritual Care intial note: Mr. Mcgraw was dismissive of brass pickler visits. I will remain available.
--- NOTE | 2019-08-14 18:20 | NUR ---
SHIFT SUMMARY PT HAS HAD NO CUTE CHANGES THIS SHIFT, NO COMPLAINTS OF ANY KIND, VSS, A&O, WILL CONT TO MONITOR UNTIL REPORT GIVEN TO NOC RN.
--- NOTE | 2019-08-15 04:27 | NUR ---
SHIFT SUMMARY PT AWAITING PLACEMENT HIS CAREGIVER IS UNABLE TO PROVIDE CARE ANY MORE. PT IS ACHS WITH A BS OF 57 AT BEGINNING OF SHIFT, HOWEVER FOLLOWING ORANGE JUICE HIS BS MIRACLE TO 102. HE IS LOW SS. WE'VE STARTED MAKING HIM Q 2 TURNS HE DOES NOT APPEAR TO REPOSITION HIMSELF. A&O X4, RA. ATTENDS IN PLACE ALTHOUGH HE DOES CALL APPROPRIATELY FOR THE URINAL.
--- NOTE | 2019-08-15 16:47 | NUR ---
HE IS ORIENTED BUT SLOW TO RESPOND. HE SAT UP FOR BREAKFAST AND WE WILL GET HIM UP AGAIN FOR DINNER. HE SLEEPS MOST OF THE TIME. TV OFF. NO VISITORS SEEN. NO COMPLAINTS. DENIES PAIN.CBG LOW AT 60 THIS MORNING AND NORMAL THE REST OF THE DAY SO FAR.CBG'S ADJUSTED TO TIDM INSTEAD OF ACHS. BP SLIGHTLY HIGH. HE DOES NOT INITIATE ANY CONVERSATION BUT DOES ANSWER WHEN WE ASK.
--- NOTE | 2019-08-15 17:51 | NUR ---
Inital spiritual care note: Mr. Mcgraw appears withdrawn, laying in bed, room dark, TV off. He is not moravian, but spoke to me a bit about the things he is worried about. He says he has no heat at home and cannot care for himself. He knows he will need placement, but has no idea how this will happen. He has a son who lives in [facility], and a dtr in [place] who is estranged. He appears very alone in the world. It was difficult to get him to open up, but he did appear to warm to me after a bit. He denies fears, but is anxious for POC. I provided emotional affirmation. We are begining to establish rapport and I will continue to see Mr. Mcgraw in coming days as case-load permits.
--- NOTE | 2019-08-16 15:34 | NUR ---
DISCHARGE REPORT PROVIDED TO ACCEPTING FACILITY. PATIENT D/C ORDERS COMPLETED. NO NEW MEDS ORDERED. PATIENT D/C AND WHEELED OUT OF HOSPITAL IN BY TRANSPORTATION SERVICES. IV REMOVED, PATIENT SIGNED AND AGREED WITH D/C PLAN.
--- NOTE | 2019-08-16 17:51 | NUR ---
Pool engaged in conversation today. He told me about some of his experiences in [place] and his sorrow with his estranged dtr. He is soft-spoken and tells me he is "ok" with losing his home and living at SNF now. He admits he has been lonely and has enjoyed being around the people at SNF. I provided theraputic listeing and emotional affirmation. We gained an easy rapport. He was discharged shortly after visit.
== END 2019-08-16 14:38 | DRG 690 ==
LOC: ER 16:46 → MEDS 16:47 → ENPENDDIS 08-16 12:51 → MEDS 08-16 14:38
PROVIDERS: Emergency Medicine; ADMIT Internal Medicine
DX: N39.0 Urinary tract infection, site not specified (principal); N18.5 Chronic kidney disease, stage 5; I12.0 Hypertensive chronic kidney disease with stage 5 chronic kidney disease or end stage renal disease; I48.20 Chronic atrial fibrillation, unspecified; N25.81 Secondary hyperparathyroidism of renal origin; B96.20 Unspecified Escherichia coli [E. coli] as the cause of diseases classified elsewhere; E11.22 Type 2 diabetes mellitus with diabetic chronic kidney disease; E78.5 Hyperlipidemia, unspecified; E03.9 Hypothyroidism, unspecified; K21.9 Gastro-esophageal reflux disease without esophagitis; E20.9 Hypoparathyroidism, unspecified; G89.29 Other chronic pain; M25.559 Pain in unspecified hip; R62.7 Adult failure to thrive; F43.10 Post-traumatic stress disorder, unspecified; F32.9 Major depressive disorder, single episode, unspecified; F41.9 Anxiety disorder, unspecified; J44.9 Chronic obstructive pulmonary disease, unspecified; I27.20 Pulmonary hypertension, unspecified; M54.9 Dorsalgia, unspecified; Z88.5 Allergy status to narcotic agent; Z79.84 Long term (current) use of oral hypoglycemic drugs; Z79.82 Long term (current) use of aspirin; Z79.899 Other long term (current) drug therapy; Z87.891 Personal history of nicotine dependence
CPT/HCPCS: 36415; 80048; 80053; 81001; 82947; 85025; 87077; 87086; 87186; 93005; 93010; 96365; 96372; 97162; 97530; 99285-25; A9270; G0378; J0696; J1644; J7030; J7050

== ENCOUNTER → 2019-10-23 | Outpatient (CLI) | payer MEDICARE ==
[~2019-10-23] MED LIST changes: +ACET325 PO; +ADULT GLYCERIN1 EACH PR; +Bumetanide2 MG PO; +FAMO20 PO; +Fleet Enema132 ML PR; +Hydrocodone-Ap1 EA23 PO; +METO2.5 PO; -Zantac150 MG PO
[2019-10-23 10:30] LABS: Albumin, Blood 3.1 g/dL (3.4-5.0); Anion Gap 6 mmol/L (6-16); Blood Urea Nitrogen 92 mg/dL (8-24); Bun/Creatinine Ratio 19.1 (12.0-20.0); CO2, Blood 26 mmol/L (21-32); Calcium, Blood 8.8 mg/dL (8.5-10.1); Chloride, Blood 106 mmol/L (98-108); Creatinine, Blood 4.82 mg/dL (0.60-1.20); Glomerular Filtration Rate 13 (60-); Glucose, Blood 139 mg/dL (70-99); Phosphorus, Blood 7.1 mg/dL (2.5-4.9); Sodium, Blood 138 mmol/L (136-145)
== END | disposition home or self-care (01) ==
LOC: LAB RH 08:46 → EDSTATUS 13:41 → LAB RH 13:43
PROVIDERS: Internal Medicine Nephrology
DX: N18.5 Chronic kidney disease, stage 5 (principal); D63.1 Anemia in chronic kidney disease
CPT/HCPCS: 36415; 80069; 85018

== ENCOUNTER 2019-10-26 16:37 | Inpatient (IN) | payer OTHER, MEDICARE ==
[~2019-10-26] VITALS: Ht 193 cm; Wt 137.5 kg
[~2019-10-26 16:37] MED LIST changes: -ACET325 PO; -ADULT GLYCERIN1 EACH PR; -ATOR10 PO; -Aspir 8181 MG PO; -Bumetanide2 MG PO; -Cosopt Plus10 ML BOTHEYES; -FAMO20 PO; -Fergon240 M1 PO; -Fleet Enema132 ML PR; -GABA300 PO; -GLIP5 PO; -Hydrocodone-Ap1 EA23 PO; -LEVSOD100 PO; -METO2.5 PO; -SENN187 PO; -THERA-D2000 UNIT PO
[2019-10-26] MEDS ORDERED: ATOR10 PO (18:41)
[2019-10-26] MEDS ORDERED: Cosopt Plus10 ML BOTHEYES (18:42)
[2019-10-26] MEDS ORDERED: GABA300 PO (18:42)
[2019-10-26] MEDS ORDERED: CALC.25 PO (18:42)
[2019-10-26] MEDS ORDERED: LEVSOD100 PO (18:43)
[2019-10-26] MEDS ORDERED: GLIP5 PO (18:43)
[2019-10-26] MEDS ORDERED: Aspir 8181 MG PO (18:44)
[2019-10-26] MEDS ORDERED: PRAZ5 PO (18:44)
[2019-10-26] MEDS ORDERED: THERA-D2000 UNIT PO (18:44)
[2019-10-26] MEDS ORDERED: SENN187 PO (18:44)
[2019-10-26] MEDS ORDERED: Fergon240 M1 PO (18:45)
[2019-10-26] MEDS ORDERED: SERT100 PO (18:45)
[2019-10-26] MEDS ORDERED: FAMO20 PO (18:46)
[2019-10-26] MEDS ORDERED: Bumetanide2 MG PO (18:47)
[2019-10-26] MEDS ORDERED: ACET325 PO (18:47)
[2019-10-26] MEDS ORDERED: METO2.5 PO (18:48)
[2019-10-26] MEDS ORDERED: Hydrocodone-Ap1 EA23 PO (18:48)
[2019-10-26] MEDS ORDERED: ADULT GLYCERIN1 EACH PR (18:49)
[2019-10-26] MEDS ORDERED: Fleet Enema132 ML PR (18:50)
[2019-10-26 19:42] LABS: Prothrombin Time Results 10.7 Sec (9.7-11.5)
--- NOTE | 2019-10-27 05:32 | NUR ---
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
--- NOTE | 2019-10-27 05:36 | NUR ---
10/26/192044 REPORT RECEIVED FROM JAIME MARIN VIA ER; PT TO ROOM VIA CART AND ASSISTED INTO BED VIA SLIDER SHEET X 4 ASSIST; ALERT AND ORIENTED X 4; DENIES PAIN OR NAUSEA; PT HERE FOR POSSIBLE PERMA CATHETER PLACEMENT. 2199 PTS SURGERY WAS CANCELLED FOR THIS EVENING BY AND POSSIBLY RESCHEDULED FOR 10/27/19; DR MULLEN NOTIFIED VIA CALLING SERVICE.
[2019-10-27 05:51] LABS: BASOPHILS ABSOLUTE AUTO 0.01 K/mm3 (0.00-0.23); BASOPHILS PERCENT AUTO 0 % (0-2); EOSINOPHILS ABSOLUTE AUTO 0.19 K/mm3 (0.00-0.68); EOSINOPHILS PERCENT AUTO 3 % (0-6); Hematocrit 32.7 % (37.0-53.0); Hemoglobin 10.8 g/dL (13.5-17.5); IMMATURE GRAN ABSOLUTE AUTO 0.02 K/mm3 (0.00-0.10); IMMATURE GRAN PERCENT AUTO 0 % (0-1); LYMPHOCYTES ABSOLUTE AUTO 1.32 K/mm3 (0.84-5.20); LYMPHOCYTES PERCENT AUTO 20 % (21-46); MONOCYTES ABSOLUTE AUTO 0.64 K/mm3 (0.16-1.47); MONOCYTES PERCENT AUTO 10 % (4-13); Mean Corpuscular HGB 30.5 pg (26.0-34.0); Mean Corpuscular Volume 92 fL (80-100); Mean Platelet Volume 11.6 fL (9.1-12.4); NEUTROPHILS ABSOLUTE AUTO 4.47 K/mm3 (1.96-9.15); NEUTROPHILS PERCENT AUTO 67 % (41-73); Platelet Count 115 K/mm3 (150-400); RDW Coefficient Variation 13.2 % (11.7-14.2); Red Blood Cell Count 3.54 M/mm3 (4.30-5.90); White Blood Cell Count 6.65 K/mm3 (4.00-11.30)
[2019-10-27 06:07] LABS: Albumin, Blood 3.1 g/dL (3.4-5.0); Anion Gap 7 mmol/L (6-16); Blood Urea Nitrogen 95 mg/dL (8-24); Bun/Creatinine Ratio 19.8 (12.0-20.0); CO2, Blood 25 mmol/L (21-32); Calcium, Blood 9.2 mg/dL (8.5-10.1); Chloride, Blood 107 mmol/L (98-108); Glomerular Filtration Rate 13 (60-); Glucose, Blood 137 mg/dL (70-99); Magnesium, Blood 2.9 mg/dL (1.6-2.4); Phosphorus, Blood 6.8 mg/dL (2.5-4.9); Potassium, Blood 4.3 mmol/L (3.5-5.5); Sodium, Blood 139 mmol/L (136-145)
--- NOTE | 2019-10-27 13:20 | NUR ---
PT TO DAY SURGERY VIA [facility]
--- NOTE | 2019-10-27 13:40 | NUR ---
History, Chart, Medications and Allergies reviewed before start of procedure. EX WHEEZES NOTED TO R UPPER LUNG, CLEAR OTHERWISE. Patient confirms NPO status and agrees with scheduled surgery. Pre-Op teaching done. Pt verbalizes understanding.
--- NOTE | 2019-10-27 16:54 | NUR ---
CHARGE NURSE FROM 3RD FLOOR WAS UNABLE TO FIND LONGER BED FOR PT TALL STATURE. NO CHANGES BEFORE TRANSFERRING TO FLOOR.
--- NOTE | 2019-10-27 19:21 | NUR ---
PT RESTING COMFORTABLY DENIES PAIN AT THIS TIME. PERMA CATH DRESSING IS DRY AND INTACT. FIRST DIALYSIS IS TO BE IN THE AM. PT DROWSY, WANTS TO SLEEP. NO ACUTE CHANGES NOTED, BEDSIDE REPORT GIVEN.
[2019-10-28 06:04] LABS: BASOPHILS ABSOLUTE AUTO 0.01 K/mm3 (0.00-0.23); BASOPHILS PERCENT AUTO 0 % (0-2); EOSINOPHILS ABSOLUTE AUTO 0.14 K/mm3 (0.00-0.68); EOSINOPHILS PERCENT AUTO 2 % (0-6); Hematocrit 34.5 % (37.0-53.0); Hemoglobin 11.1 g/dL (13.5-17.5); IMMATURE GRAN ABSOLUTE AUTO 0.04 K/mm3 (0.00-0.10); IMMATURE GRAN PERCENT AUTO 1 % (0-1); LYMPHOCYTES ABSOLUTE AUTO 1.03 K/mm3 (0.84-5.20); LYMPHOCYTES PERCENT AUTO 16 % (21-46); MONOCYTES ABSOLUTE AUTO 0.54 K/mm3 (0.16-1.47); MONOCYTES PERCENT AUTO 8 % (4-13); Mean Corpuscular HGB Conc 32.2 g/dL (31.5-36.5); Mean Corpuscular Volume 93 fL (80-100); Mean Platelet Volume 11.7 fL (9.1-12.4); NEUTROPHILS ABSOLUTE AUTO 4.68 K/mm3 (1.96-9.15); NEUTROPHILS PERCENT AUTO 73 % (41-73); Platelet Count 123 K/mm3 (150-400); RDW Coefficient Variation 13.3 % (11.7-14.2); RDW Standard Deviation 45.6 fL (35.1-46.3); White Blood Cell Count 6.44 K/mm3 (4.00-11.30)
--- NOTE | 2019-10-28 06:16 | NUR ---
SHIFT SUMMARY PT IS A 73 Y/O MALE, ADMITTED FOR ESRD. PT HAD A PERMA-CATH PLACED IN THE R CHEST WALL YESTERDAY. PER REPORT PT IS TO START DIALYSIS TODAY. HE IS A&O X 3, AND A 2PA UP OUT OF BED. NO COMPLAINTS OF ACUTE PAIN, NAUSEA OR SOB. VITAL SIGNS STABLE. TELE SHOWED AFIB C PVCS IN THE 80S. PT SLEPT WELL THROUGH THE NIGHT. NO ACUTE CHANGES IN PT CONDITION NOTED. WILL CONTINUE TO MONITOR AND TREAT PER EMAR UNTIL HAND OFF TO DAY SHIFT RN.
[2019-10-28 06:41] LABS: Albumin, Blood 3.1 g/dL (3.4-5.0); Anion Gap 6 mmol/L (6-16); Blood Urea Nitrogen 83 mg/dL (8-24); Bun/Creatinine Ratio 18.2 (12.0-20.0); CO2, Blood 26 mmol/L (21-32); Calcium, Blood 9.1 mg/dL (8.5-10.1); Chloride, Blood 108 mmol/L (98-108); Creatinine, Blood 4.55 mg/dL (0.60-1.20); Glomerular Filtration Rate 14 (60-); Glucose, Blood 115 mg/dL (70-99); Magnesium, Blood 2.9 mg/dL (1.6-2.4); Phosphorus, Blood 6.2 mg/dL (2.5-4.9); Potassium, Blood 4.7 mmol/L (3.5-5.5); Sodium, Blood 140 mmol/L (136-145)
--- NOTE | 2019-10-28 18:25 | NUR ---
SHIFT SUMMARY PT HAD DIALYSIS THIS AM AND HAS HAD NO COMPLAINTS THIS SHIFT. PT REPORTS SOME PAIN IN RIGHT CHEST AREA WHERE PERMCATH WAS PLACED BUT DECLINED TO HAVE ANY MEDICATION FOR PAIN. PT HAD BEDBATH AND NEW DRESSING PLACED TO LEFT BUTTOCK WOUND. NO DRAINAGE NOTED. NO ACUTE CHANGES THIS SHIFT. PLANS FOR PT TO HAVE DIALYSIS TOMORROW. CALL LIGHT IN REACH. WILL CONTINUE TO MONITOR AND REPORT TO ONCOMING RN.
[2019-10-29 06:05] LABS: Hematocrit 33.5 % (37.0-53.0); Hemoglobin 10.5 g/dL (13.5-17.5)
--- NOTE | 2019-10-29 06:50 | NUR ---
SHIFT SUMMARY PT IS A 73 Y/O MALE, ADMITTED FOR ESRD AND PERMACATH PLACEMENT TO BEGIN DIALYSIS. PT IS A&O X 4, THOUGH WITH A FLAT AFFECT. PT SLEPT WELL THROUGH THE NIGHT. HE WAS MEDICATED ONCE FOR PAIN IN HIS PERMACATH SITE WITH PRN TYLENOL. NO COMPLAINTS OF NAUSEA OR SOB. VITAL SIGNS STABLE. NO OTHER ACUTE CHANGES IN PT CONDITION NOTED. REPORT GIVEN TO ONCOMING RN.
[2019-10-29 06:53] LABS: Anion Gap 7 mmol/L (6-16); Blood Urea Nitrogen 62 mg/dL (8-24); Bun/Creatinine Ratio 14.8 (12.0-20.0); CO2, Blood 26 mmol/L (21-32); Calcium, Blood 9.1 mg/dL (8.5-10.1); Chloride, Blood 106 mmol/L (98-108); Glomerular Filtration Rate 15 (60-); Glucose, Blood 136 mg/dL (70-99); Magnesium, Blood 2.5 mg/dL (1.6-2.4); Phosphorus, Blood 4.3 mg/dL (2.5-4.9); Sodium, Blood 139 mmol/L (136-145)
--- NOTE | 2019-10-29 18:18 | NUR ---
SHIFT SUMMARY PT RECEIEVED DIALYSIS THIS AM AND PLANS FOR DIALYSIS TOMORROW. POSSIBLE DISCHARGE TOMORROW IF PT IS SET UP WITH [facility]. PT SAT UP IN THE CHAIR THIS AFTERNOON AND TOLERATED IT WELL. NO COMPLAINTS OF PAIN. NO ACUTE CHANGES THIS SHIFT. WILL CONTINUE TO MONITOR AND REPORT TO ONCOMING RN. CALL LIGHT IN REACH.
[2019-10-30 04:08] LABS: HBSAG SCREEN Negative (Negative); HEP B CORE AB, TOT Negative (Negative); HEP C VIRUS AB 0.2 (0.0-0.9)
[2019-10-30 05:08] LABS: HBSAG SCREEN Negative (Negative); HEP A AB, IGM Negative (Negative); HEP B CORE AB, IGM Negative (Negative); HEP C VIRUS AB 0.2 (0.0-0.9)
[2019-10-30 05:25] LABS: Hematocrit 34.1 % (37.0-53.0); Hemoglobin 10.8 g/dL (13.5-17.5)
[2019-10-30 05:53] LABS: Magnesium, Blood 2.3 mg/dL (1.6-2.4)
[2019-10-30 06:02] LABS: Anion Gap 6 mmol/L (6-16); Blood Urea Nitrogen 40 mg/dL (8-24); Bun/Creatinine Ratio 11.4 (12.0-20.0); CO2, Blood 28 mmol/L (21-32); Calcium, Blood 9.3 mg/dL (8.5-10.1); Chloride, Blood 106 mmol/L (98-108); Glomerular Filtration Rate 18 (60-); Glucose, Blood 132 mg/dL (70-99); Phosphorus, Blood 3.3 mg/dL (2.5-4.9); Potassium, Blood 4.1 mmol/L (3.5-5.5); Sodium, Blood 140 mmol/L (136-145)
--- NOTE | 2019-10-30 07:33 | NUR ---
SHIFT SUMMARY PT IS A 73 Y/O MALE, ADMITTED FOR ESRD AND PERMACATH PLACEMENT. HE IS A&O X 4, AND A 1-2PA TO THE BS. PT DENIED ANY COMPLAINTS OF ACUTE PAIN, NAUSEA OR SOB, AND SLEPT WELL DURING THE NIGHT. VITAL SIGNS STABLE. NO ACUTE CHANGES IN PT CONDITION NOTED. REPORT GIVEN TO ONCOMING RN.
--- NOTE | 2019-10-30 17:01 | NUR ---
ALERT. ORIENTED. DIALTSIS TODAY. TOLERATED WELL. PERMACATH SITE DRY, INTACT, NO SIGNS OF BLEEDING OR INFECTION. IV PATENT. NO C/O ; PAIN, SOB OR N/V. UNLABORED RESPIRATIONS. BED IN LOW POSITION. CALL LIGHT WITHIN REACH. WCTM
[2019-10-31 05:21] LABS: Hematocrit 33.2 % (37.0-53.0); Hemoglobin 10.5 g/dL (13.5-17.5)
[2019-10-31 05:44] LABS: Magnesium, Blood 2.3 mg/dL (1.6-2.4)
[2019-10-31 05:52] LABS: Albumin, Blood 2.9 g/dL (3.4-5.0); Anion Gap 8 mmol/L (6-16); Blood Urea Nitrogen 40 mg/dL (8-24); Bun/Creatinine Ratio 10.7 (12.0-20.0); CO2, Blood 29 mmol/L (21-32); Calcium, Blood 9.1 mg/dL (8.5-10.1); Chloride, Blood 104 mmol/L (98-108); Creatinine, Blood 3.75 mg/dL (0.60-1.20); Glomerular Filtration Rate 17 (60-); Glucose, Blood 145 mg/dL (70-99); Phosphorus, Blood 3.6 mg/dL (2.5-4.9); Potassium, Blood 3.7 mmol/L (3.5-5.5); Sodium, Blood 141 mmol/L (136-145)
--- NOTE | 2019-10-31 06:33 | NUR ---
HAS BEEN RESTING QUIETLY WITH FEW INTERRUPTIONS THIS SHIFT. HOB ELEVATED DURING NOCT FOR COMFORT AND EASIER BREATHING. CALL LIGHT IN REACH. NO COMPLAINTS VOICED.
--- NOTE | 2019-10-31 12:38 | NUR ---
BACK FROM DIALYSIS
--- NOTE | 2019-10-31 14:21 | NUR ---
REPORT GIVEN TO AMY AT [facility]. AWARE OF D.I LEFT BUTTOCK WHICH IS COVERED BY MEPILEX. ANSWER ALL QUESTIONS. AWAITING W/C VAN
== END 2019-10-31 14:40 | DRG 673 ==
LOC: ER 16:37 → MEDS 16:38 → ENPENDDIS 10-31 11:54 → MEDS 10-31 14:40
PROVIDERS: Hospitalist; Internal Medicine Nephrology; Surgery; ADMIT Internal Medicine
PROC: 02HV33Z Insertion of Infusion Device into Superior Vena Cava, Percutaneous Approach (ICD-10-PCS; 2019-10-27)
PROC: B518ZZA Fluoroscopy of Superior Vena Cava, Guidance (ICD-10-PCS; 2019-10-27)
PROC: 0JH63XZ Insertion of Tunneled Vascular Access Device into Chest Subcutaneous Tissue and Fascia, Percutaneous Approach (ICD-10-PCS; principal; 2019-10-27 14:00)
PROC: 5A1D70Z Performance of Urinary Filtration, Intermittent, Less than 6 Hours Per Day (ICD-10-PCS; 2019-10-28)
PROC: 5A1D70Z Performance of Urinary Filtration, Intermittent, Less than 6 Hours Per Day (ICD-10-PCS; 2019-10-29)
PROC: 5A1D70Z Performance of Urinary Filtration, Intermittent, Less than 6 Hours Per Day (ICD-10-PCS; 2019-10-30)
PROC: 5A1D70Z Performance of Urinary Filtration, Intermittent, Less than 6 Hours Per Day (ICD-10-PCS; 2019-10-31)
DX: I12.0 Hypertensive chronic kidney disease with stage 5 chronic kidney disease or end stage renal disease (principal); N18.6 End stage renal disease; I48.20 Chronic atrial fibrillation, unspecified; E87.2 Acidosis; N25.81 Secondary hyperparathyroidism of renal origin; E11.22 Type 2 diabetes mellitus with diabetic chronic kidney disease; E78.5 Hyperlipidemia, unspecified; J44.9 Chronic obstructive pulmonary disease, unspecified; E03.9 Hypothyroidism, unspecified; D63.1 Anemia in chronic kidney disease; E66.9 Obesity, unspecified; G89.29 Other chronic pain; M54.9 Dorsalgia, unspecified; E87.70 Fluid overload, unspecified; I71.2 Thoracic aortic aneurysm, without rupture; E88.09 Other disorders of plasma-protein metabolism, not elsewhere classified; I27.20 Pulmonary hypertension, unspecified; E83.39 Other disorders of phosphorus metabolism; Z88.5 Allergy status to narcotic agent; Z79.899 Other long term (current) drug therapy; Z79.84 Long term (current) use of oral hypoglycemic drugs; Z79.82 Long term (current) use of aspirin; Z85.46 Personal history of malignant neoplasm of prostate; Z68.36 Body mass index [BMI] 36.0-36.9, adult
CPT/HCPCS: 36415; 77001; 80069; 80074; 82947; 83735; 85014; 85018; 85025; 85610; 85730; 86317; 86704; 86708; 86803; 87340; 93005; 93010; 99284-25; A9270; A9270-GY; C1750; C9113; G0378; J0690; J1644; J2250; J2370; J2405; J2704; J3010; J7030

== ENCOUNTER → 2019-10-26 | Outpatient (CLI) | payer MEDICARE ==
[2019-10-26 10:26] LABS: BASOPHILS ABSOLUTE AUTO 0.02 K/mm3 (0.00-0.23); BASOPHILS PERCENT AUTO 0 % (0-2); EOSINOPHILS ABSOLUTE AUTO 0.23 K/mm3 (0.00-0.68); EOSINOPHILS PERCENT AUTO 4 % (0-6); Hematocrit 33.1 % (37.0-53.0); Hemoglobin 10.4 g/dL (13.5-17.5); IMMATURE GRAN ABSOLUTE AUTO 0.01 K/mm3 (0.00-0.10); IMMATURE GRAN PERCENT AUTO 0 % (0-1); LYMPHOCYTES PERCENT AUTO 26 % (21-46); MONOCYTES ABSOLUTE AUTO 0.59 K/mm3 (0.16-1.47); MONOCYTES PERCENT AUTO 9 % (4-13); Mean Corpuscular HGB 29.3 pg (26.0-34.0); Mean Corpuscular HGB Conc 31.4 g/dL (31.5-36.5); Mean Corpuscular Volume 93 fL (80-100); Mean Platelet Volume 11.8 fL (9.1-12.4); NEUTROPHILS ABSOLUTE AUTO 3.81 K/mm3 (1.96-9.15); NEUTROPHILS PERCENT AUTO 61 % (41-73); Platelet Count 120 K/mm3 (150-400); RDW Coefficient Variation 13.2 % (11.7-14.2); RDW Standard Deviation 45.2 fL (35.1-46.3); Red Blood Cell Count 3.55 M/mm3 (4.30-5.90); White Blood Cell Count 6.26 K/mm3 (4.00-11.30)
[2019-10-26 10:52] LABS: Albumin, Blood 3.2 g/dL (3.4-5.0); Albumin/Globulin Ratio 0.9 (0.8-1.8); Bilirubin, Total 0.4 mg/dL (0.1-1.0); Bun/Creatinine Ratio 18.8 (12.0-20.0); Calcium, Blood 9.2 mg/dL (8.5-10.1); Creatinine, Blood 4.84 mg/dL (0.60-1.20); Globulin, Blood 3.7 g/dL (2.2-4.0); Magnesium, Blood 3.1 mg/dL (1.6-2.4); Phosphorus, Blood 7.7 mg/dL (2.5-4.9); Potassium, Blood 4.2 mmol/L (3.5-5.5); Total Protein, Blood 6.9 g/dL (6.4-8.2)
== END | disposition home or self-care (01) ==
LOC: LAB RH 08:02 → EDSTATUS 13:44
PROVIDERS: Family Medicine
DX: I12.9 Hypertensive chronic kidney disease with stage 1 through stage 4 chronic kidney disease, or unspecified chronic kidney disease (principal); N18.9 Chronic kidney disease, unspecified; D63.1 Anemia in chronic kidney disease; D69.6 Thrombocytopenia, unspecified
CPT/HCPCS: 36415; 80053; 83735; 84100; 85025

== ENCOUNTER 2020-07-22 21:21 | Inpatient (IN) | payer OTHER, MEDICARE ==
[~2020-07-22] VITALS: Ht 193 cm; Wt 136.1 kg
[~2020-07-22 21:21] MED LIST changes: +ACET325 PO; +ADULT GLYCERIN1 EACH PR; +ATOR10 PO; +Aspir 8181 MG PO; +Bumetanide2 MG PO; +Cosopt Plus10 ML BOTHEYES; +FAMO20 PO; +Fergon240 M1 PO; +Fleet Enema132 ML PR; +GABA300 PO; +GLIP5 PO; +Hydrocodone-Ap1 EA23 PO; +LEVSOD100 PO; +METO2.5 PO; +SENN187 PO; +THERA-D2000 UNIT PO
[2020-07-22 21:48] LABS: BASOPHILS ABSOLUTE AUTO 0.03 K/mm3 (0.00-0.23); BASOPHILS PERCENT AUTO 0 % (0-2); EOSINOPHILS ABSOLUTE AUTO 0.13 K/mm3 (0.00-0.68); EOSINOPHILS PERCENT AUTO 1 % (0-6); Hematocrit 37.5 % (37.0-53.0); Hemoglobin 11.9 g/dL (13.5-17.5); IMMATURE GRAN ABSOLUTE AUTO 0.02 K/mm3 (0.00-0.10); IMMATURE GRAN PERCENT AUTO 0 % (0-1); LYMPHOCYTES ABSOLUTE AUTO 1.31 K/mm3 (0.84-5.20); LYMPHOCYTES PERCENT AUTO 14 % (21-46); MONOCYTES ABSOLUTE AUTO 0.63 K/mm3 (0.16-1.47); MONOCYTES PERCENT AUTO 7 % (4-13); Mean Corpuscular HGB 30.4 pg (26.0-34.0); Mean Corpuscular HGB Conc 31.7 g/dL (31.5-36.5); Mean Corpuscular Volume 96 fL (80-100); Mean Platelet Volume 11.4 fL (9.1-12.4); NEUTROPHILS ABSOLUTE AUTO 7.15 K/mm3 (1.96-9.15); NEUTROPHILS PERCENT AUTO 77 % (41-73); Platelet Count 158 K/mm3 (150-400); RDW Coefficient Variation 13.8 % (11.7-14.2); RDW Standard Deviation 48.1 fL (35.1-46.3); Red Blood Cell Count 3.91 M/mm3 (4.30-5.90); White Blood Cell Count 9.27 K/mm3 (4.00-11.30)
[2020-07-22] MEDS ORDERED: ATOR10 PO (21:49)
[2020-07-22] MEDS ORDERED: Aspirin EC81 MG PO (21:49)
[2020-07-22] MEDS ORDERED: COSOPT PF EYE1 EACH BOTHEYES (21:50)
[2020-07-22] MEDS ORDERED: BUME2 PO (21:50)
[2020-07-22] MEDS ORDERED: FAMO20 PO (21:50)
[2020-07-22] MEDS ORDERED: GABA300 PO (21:50)
[2020-07-22] MEDS ORDERED: LEVSOD100 PO (21:51)
[2020-07-22] MEDS ORDERED: BASAGLAR K100 UNIT/1 SC (21:51)
[2020-07-22] MEDS ORDERED: MIDO5 PO (21:52)
[2020-07-22] MEDS ORDERED: MIRALAX17 GM PO (21:53)
[2020-07-22] MEDS ORDERED: MINIPRESS5 MG PO (21:53)
[2020-07-22] MEDS ORDERED: Norco 5-325 Ta1 EACH PO (21:53)
[2020-07-22] MEDS ORDERED: Calcium Acetat667 MG PO (21:54)
[2020-07-22] MEDS ORDERED: SEVEC800 PO (21:54)
[2020-07-22] MEDS ORDERED: SENN187 PO (21:54)
[2020-07-22] MEDS ORDERED: SERT25 PO (21:55)
[2020-07-22] MEDS ORDERED: ACET325 PO (21:55)
[2020-07-22] MEDS ORDERED: Vitamin D2000 UNIT PO (21:55)
[2020-07-22 22:08] LABS: Alanine Aminotransfer (ALT/SGP 21 U/L (12-78); Albumin, Blood 3.7 g/dL (3.4-5.0); Albumin/Globulin Ratio 0.9 (0.8-1.8); Alk Phos 75 U/L (50-136); Anion Gap 7 mmol/L (6-16); Aspartate Aminotrans (AST/SGOT 8 U/L (12-37); Bilirubin, Total 0.3 mg/dL (0.1-1.0); Blood Urea Nitrogen 28 mg/dL (8-24); Bun/Creatinine Ratio 8.3 (12.0-20.0); CO2, Blood 33 mmol/L (21-32); Calcium, Blood 9.4 mg/dL (8.5-10.1); Chloride, Blood 97 mmol/L (98-108); Creatinine, Blood 3.36 mg/dL (0.60-1.20); Globulin, Blood 4.3 g/dL (2.2-4.0); Glomerular Filtration Rate 19 (60-); Glucose, Blood 250 mg/dL (70-99); Potassium, Blood 4.1 mmol/L (3.5-5.5); Sodium, Blood 137 mmol/L (136-145); Troponin I <0.015 ng/mL (0.000-0.040)
[2020-07-23 05:50] LABS: BASOPHILS ABSOLUTE AUTO 0.03 K/mm3 (0.00-0.23); BASOPHILS PERCENT AUTO 0 % (0-2); EOSINOPHILS ABSOLUTE AUTO 0.06 K/mm3 (0.00-0.68); EOSINOPHILS PERCENT AUTO 1 % (0-6); Hematocrit 33.8 % (37.0-53.0); Hemoglobin 10.6 g/dL (13.5-17.5); IMMATURE GRAN ABSOLUTE AUTO 0.01 K/mm3 (0.00-0.10); IMMATURE GRAN PERCENT AUTO 0 % (0-1); LYMPHOCYTES PERCENT AUTO 23 % (21-46); MONOCYTES ABSOLUTE AUTO 0.43 K/mm3 (0.16-1.47); MONOCYTES PERCENT AUTO 6 % (4-13); Mean Corpuscular HGB 30.2 pg (26.0-34.0); Mean Corpuscular HGB Conc 31.4 g/dL (31.5-36.5); Mean Corpuscular Volume 96 fL (80-100); Mean Platelet Volume 11.1 fL (9.1-12.4); NEUTROPHILS ABSOLUTE AUTO 4.84 K/mm3 (1.96-9.15); NEUTROPHILS PERCENT AUTO 69 % (41-73); Platelet Count 136 K/mm3 (150-400); RDW Coefficient Variation 13.9 % (11.7-14.2); Red Blood Cell Count 3.51 M/mm3 (4.30-5.90); White Blood Cell Count 6.97 K/mm3 (4.00-11.30)
[2020-07-23 11:59] LABS: Influenza A, PCR Negative (NEGATIVE); Influenza B, PCR Negative (NEGATIVE); Resp Syncytial Virus, PCR Negative (NEGATIVE); SARS-Cov-2 (COVID-19) PCR, MMC Negative (NEGATIVE)
[2020-07-23] MEDS ORDERED: NOVOLOG FL100 UNIT/3 SC (13:36)
== END 2020-07-23 19:55 | disposition home or self-care (01) | DRG 312 ==
LOC: ER 21:21 → ERHOLD 21:22
PROVIDERS: Internal Medicine; Physician Assistant; ADMIT Internal Medicine
PROC: 05HN33Z Insertion of Infusion Device into Left Internal Jugular Vein, Percutaneous Approach (ICD-10-PCS; principal; 2020-07-23)
DX: I95.3 Hypotension of hemodialysis (principal); N18.6 End stage renal disease; N25.81 Secondary hyperparathyroidism of renal origin; I12.0 Hypertensive chronic kidney disease with stage 5 chronic kidney disease or end stage renal disease; J44.9 Chronic obstructive pulmonary disease, unspecified; Z99.81 Dependence on supplemental oxygen; Z79.82 Long term (current) use of aspirin; Z87.891 Personal history of nicotine dependence; E11.22 Type 2 diabetes mellitus with diabetic chronic kidney disease; Z20.828 Contact with and (suspected) exposure to other viral communicable diseases; I27.20 Pulmonary hypertension, unspecified; E03.9 Hypothyroidism, unspecified; E66.9 Obesity, unspecified; Z90.79 Acquired absence of other genital organ(s); Z79.4 Long term (current) use of insulin; Z99.2 Dependence on renal dialysis
CPT/HCPCS: 0241U; 36415; 36556; 71045; 80053; 82947; 83605; 83880; 84484; 85025; 87040; 93005; 93010; 96361; 96365; 96366; 99285-25; A9270-GY; C1751; G0378; J1815; J7030; J7060; Q2038

== ENCOUNTER 2020-10-10 13:21 | Observation (INO) | payer OTHER, MEDICARE ==
[~2020-10-10] VITALS: Ht 193 cm; Wt 136.1 kg
[~2020-10-10 13:21] MED LIST changes: +Aspirin EC81 MG PO; +BASAGLAR K100 UNIT/1 SC; +BUME2 PO; +COSOPT PF EYE1 EACH BOTHEYES; +Calcium Acetat667 MG PO; +MIDO5 PO; +MINIPRESS5 MG PO; +MIRALAX17 GM PO; +NOVOLOG FL100 UNIT/3 SC; +Norco 5-325 Ta1 EACH PO; +SERT25 PO; +SEVEC800 PO; +Vitamin D2000 UNIT PO
[2020-10-10 16:21] LABS: Bun/Creatinine Ratio 8.9 (12.0-20.0); Calcium, Blood 8.9 mg/dL (8.5-10.1); Creatinine, Blood 5.72 mg/dL (0.60-1.20); Potassium, Blood 3.9 mmol/L (3.5-5.5)
[2020-10-11 05:33] LABS: Hematocrit 32.3 % (37.0-53.0); Hemoglobin 10.5 g/dL (13.5-17.5)
[2020-10-11 06:07] LABS: Albumin, Blood 3.3 g/dL (3.4-5.0); Anion Gap 6 mmol/L (6-16); Blood Urea Nitrogen 40 mg/dL (8-24); Bun/Creatinine Ratio 7.9 (12.0-20.0); CO2, Blood 31 mmol/L (21-32); Calcium, Blood 8.8 mg/dL (8.5-10.1); Chloride, Blood 97 mmol/L (98-108); Creatinine, Blood 5.05 mg/dL (0.60-1.20); Glomerular Filtration Rate 12 (60-); Glucose, Blood 248 mg/dL (70-99); Magnesium, Blood 2.1 mg/dL (1.6-2.4); Phosphorus, Blood 3.3 mg/dL (2.5-4.9); Potassium, Blood 3.8 mmol/L (3.5-5.5); Sodium, Blood 134 mmol/L (136-145)
--- NOTE | 2020-10-11 07:32 | NUR ---
SHIFT SUMMARY PATIENT ALERT AND ORIENTED. REQUIRES MAXIMUM ASSISTANCE WITH ADL'S. WAS MEDICATED PER EMAR FOR PAIN. PATIENT RECEIVED DIALYSIS IN HIS ROOM. BED IN LOWEST POSITION WITH WHEELS LOCKED AND ALARM ON. CALL LIGHT WITHIN REACH. REPORT GIVEN TO ONCOMING RN.
--- NOTE | 2020-10-11 13:49 | NUR ---
PATIENT DISCHARGED TO [facility] AFTER HD THIS MORNING. PICKED UP BY TRANSPORT AT 1345. PATIENT DID NOT HAVE ANY PERSONAL BELONGINGS.
== END 2020-10-11 13:47 ==
LOC: ER 13:21 → ERHOLD 13:22 → MEDS 13:22 → ENPENDDIS 10-11 13:39 → MEDS 10-11 13:47
PROVIDERS: Emergency Medicine; Internal Medicine Nephrology; ADMIT Hospitalist
DX: E11.22 Type 2 diabetes mellitus with diabetic chronic kidney disease (principal); I12.0 Hypertensive chronic kidney disease with stage 5 chronic kidney disease or end stage renal disease; N18.6 End stage renal disease; E66.9 Obesity, unspecified; Z68.36 Body mass index [BMI] 36.0-36.9, adult; M19.90 Unspecified osteoarthritis, unspecified site; U07.1 COVID-19; E03.9 Hypothyroidism, unspecified; F41.8 Other specified anxiety disorders; D63.1 Anemia in chronic kidney disease; E78.5 Hyperlipidemia, unspecified; Z99.2 Dependence on renal dialysis; Z79.4 Long term (current) use of insulin; Z87.891 Personal history of nicotine dependence
CPT/HCPCS: 36415; 80048; 80069; 82947; 83735; 85014; 85018; 96372; 99284-25; A9270; G0257; G0378; J1644; J1815

== ENCOUNTER 2020-10-25 10:54 | Emergency (ER) | payer OTHER, MEDICARE ==
[~2020-10-25] VITALS: Ht 188 cm; Wt 136.1 kg
== END 2020-10-25 13:10 | disposition home or self-care (01) ==
LOC: ER 10:54
DX: S09.90XA Unspecified injury of head, initial encounter (principal); I48.91 Unspecified atrial fibrillation; J44.9 Chronic obstructive pulmonary disease, unspecified; I12.0 Hypertensive chronic kidney disease with stage 5 chronic kidney disease or end stage renal disease; E11.22 Type 2 diabetes mellitus with diabetic chronic kidney disease; N18.6 End stage renal disease; Z79.4 Long term (current) use of insulin; Z79.899 Other long term (current) drug therapy; Z79.82 Long term (current) use of aspirin; Z87.891 Personal history of nicotine dependence; W06.XXXA Fall from bed, initial encounter
CPT/HCPCS: 36415; 93005; 93010; 99283-25

== ENCOUNTER 2020-11-01 15:46 | Observation (INO) | payer OTHER, MEDICARE ==
[~2020-11-01] VITALS: Ht 190.5 cm; Wt 137.0 kg
[2020-11-01 16:09] LABS: Hematocrit 34.2 % (37.0-53.0); Hemoglobin 10.4 g/dL (13.5-17.5); Mean Corpuscular HGB 30.2 pg (26.0-34.0); Mean Corpuscular HGB Conc 30.4 g/dL (31.5-36.5); Mean Corpuscular Volume 99 fL (80-100); Mean Platelet Volume 10.5 fL (9.1-12.4); Platelet Count 285 K/mm3 (150-400); RDW Standard Deviation 54.7 fL (35.1-46.3); Red Blood Cell Count 3.44 M/mm3 (4.30-5.90); White Blood Cell Count 12.48 K/mm3 (4.00-11.30)
[2020-11-01 16:26] LABS: Albumin, Blood 2.3 g/dL (3.4-5.0); Albumin/Globulin Ratio 0.4 (0.8-1.8); BAND PERCENT MAN 5 % (0-8); BASOPHILS ABSOLUTE MAN 0.12 K/mm3 (0.00-0.23); BASOPHILS PERCENT MAN 1 % (0-2); Bilirubin, Total 0.4 mg/dL (0.1-1.0); Bun/Creatinine Ratio 6.7 (12.0-20.0); Creatinine, Blood 2.53 mg/dL (0.60-1.20); EOSINOPHILS PERCENT MAN 0 % (0-6); Globulin, Blood 5.4 g/dL (2.2-4.0); LYMPHOCYTES ABSOLUTE MAN 1.37 K/mm3 (0.84-5.20); LYMPHOCYTES PERCENT MAN 11 % (21-46); MONOCYTES ABSOLUTE MAN 0.74 K/mm3 (0.16-1.47); MONOCYTES PERCENT MAN 6 % (4-13); NEUTROPHILS ABSOLUTE MAN 10.23 K/mm3 (1.96-9.15); Potassium, Blood 3.7 mmol/L (3.5-5.5); SEG NEUTROPHILS PERCENT MAN 77 % (41-73); TOTAL CELLS COUNTED 100; Total Protein, Blood 7.7 g/dL (6.4-8.2)
[2020-11-01 18:43] LABS: Influenza A, PCR NEGATIVE (NEGATIVE); Influenza B, PCR NEGATIVE (NEGATIVE); Resp Syncytial Virus, PCR NEGATIVE (NEGATIVE)
[2020-11-01 18:45] LABS: SARS-Cov-2 (COVID-19) PCR, MMC POSITIVE (NEGATIVE)
--- NOTE | 2020-11-01 22:00 | NUR ---
2150 PT ADMITTED TO ROOM 342 PER CART FROM ER; PT SLIDE INTO BED VIA SLIDER SHEET X 4 ASSIST; DROPLET PRECAUTIONS STARTED FOR COVID POSITIVE TEST.
[2020-11-02] MEDS ORDERED: FLUDROCORTISON0.1 M1 PO (00:24)
[2020-11-02] MEDS ORDERED: ROPI.25 PO (00:29)
--- NOTE | 2020-11-02 04:46 | NUR ---
SHIFT SUMMARY: 74 Y/O OBESE MALE RESTED COMFORTABLY ALL SHIFT; PT DID C/O BACK PAIN X 1 RATED 7/10 WITH NORCO 5/325MG PO GIVEN WITH RELIEF FELT; ALERT AND ORIENTED X 4; PT WHEELCHAIR BOUND AT BASELINE AND REQUIRES ASSISTANCE WITH ALL ADLS/IADLS; PT INCONTINENT URINE WITH ATTENDS WORN; PTS RIGHT UPPER CHEST PERMACATH SITE DRESSING DRY AND INTACT; BED ALARM APPLIED FOR SAFETY, BED LOW POSITION WITH CALL LIGHT AT SIDE.
[2020-11-02 05:34] LABS: BASOPHILS ABSOLUTE AUTO 0.03 K/mm3 (0.00-0.23); BASOPHILS PERCENT AUTO 0 % (0-2); EOSINOPHILS ABSOLUTE AUTO 0.13 K/mm3 (0.00-0.68); EOSINOPHILS PERCENT AUTO 1 % (0-6); Hematocrit 31.5 % (37.0-53.0); Hemoglobin 9.7 g/dL (13.5-17.5); IMMATURE GRAN PERCENT AUTO 4 % (0-1); LYMPHOCYTES ABSOLUTE AUTO 0.84 K/mm3 (0.84-5.20); LYMPHOCYTES PERCENT AUTO 7 % (21-46); MONOCYTES ABSOLUTE AUTO 0.61 K/mm3 (0.16-1.47); MONOCYTES PERCENT AUTO 5 % (4-13); Mean Corpuscular HGB 30.1 pg (26.0-34.0); Mean Corpuscular HGB Conc 30.8 g/dL (31.5-36.5); Mean Corpuscular Volume 98 fL (80-100); Mean Platelet Volume 10.8 fL (9.1-12.4); NEUTROPHILS ABSOLUTE AUTO 9.39 K/mm3 (1.96-9.15); NEUTROPHILS PERCENT AUTO 82 % (41-73); Platelet Count 282 K/mm3 (150-400); RDW Coefficient Variation 15.1 % (11.7-14.2); RDW Standard Deviation 53.9 fL (35.1-46.3); Red Blood Cell Count 3.22 M/mm3 (4.30-5.90)
[2020-11-02 06:01] LABS: Albumin, Blood 2.2 g/dL (3.4-5.0); Albumin/Globulin Ratio 0.4 (0.8-1.8); Bilirubin, Total 1.5 mg/dL (0.1-1.0); Bun/Creatinine Ratio 7.1 (12.0-20.0); Creatinine, Blood 3.68 mg/dL (0.60-1.20); Globulin, Blood 5.1 g/dL (2.2-4.0); Potassium, Blood 3.8 mmol/L (3.5-5.5); Total Protein, Blood 7.3 g/dL (6.4-8.2)
[2020-11-02] MEDS ORDERED: DILT120 PO (14:00)
--- NOTE | 2020-11-02 15:46 | NUR ---
PT WAS DISCHARGED TO [facility] BY TRANSPORTATION SERVICE WITH BELONGINGS AT SIDE. REPORT WAS GIVEN TO CODIE SANDOVAL. PT MADE NO COMPLAINTS UPON DC.
== END 2020-11-02 15:32 ==
LOC: ER 15:46 → MEDS 15:47
PROVIDERS: Emergency Medicine; ADMIT Internal Medicine
DX: I95.89 Other hypotension (principal); R79.89 Other specified abnormal findings of blood chemistry; I12.0 Hypertensive chronic kidney disease with stage 5 chronic kidney disease or end stage renal disease; N18.6 End stage renal disease; E11.22 Type 2 diabetes mellitus with diabetic chronic kidney disease; G25.81 Restless legs syndrome; E03.9 Hypothyroidism, unspecified; J44.9 Chronic obstructive pulmonary disease, unspecified; N25.81 Secondary hyperparathyroidism of renal origin; E78.5 Hyperlipidemia, unspecified; I48.20 Chronic atrial fibrillation, unspecified; E88.09 Other disorders of plasma-protein metabolism, not elsewhere classified; D63.1 Anemia in chronic kidney disease; E87.1 Hypo-osmolality and hyponatremia; I48.92 Unspecified atrial flutter; E66.9 Obesity, unspecified; Z68.37 Body mass index [BMI] 37.0-37.9, adult; Z79.4 Long term (current) use of insulin; Z79.82 Long term (current) use of aspirin; Z99.2 Dependence on renal dialysis; Z99.81 Dependence on supplemental oxygen; Z87.891 Personal history of nicotine dependence; Z86.16 Personal history of COVID-19
CPT/HCPCS: 0241U; 36415; 71045; 71260; 80053; 82947; 83880; 84484; 85025; 85379; 93005; 93010; 96365-59; 96366; 96372; 96376-59; 99285-25; A9270; G0378; J1650; J1815; Q9967

== ENCOUNTER 2021-06-30 13:53 | Emergency (ER) | payer OTHER ==
[~2021-06-30] VITALS: Ht 185.4 cm; Wt 136.1 kg
[~2021-06-30 13:53] MED LIST changes: +DILT120 PO; +FLUDROCORTISON0.1 M1 PO; +ROPI.25 PO
== END 2021-06-30 16:27 | disposition home or self-care (01) ==
LOC: ER 13:53
DX: I48.91 Unspecified atrial fibrillation (principal); E11.22 Type 2 diabetes mellitus with diabetic chronic kidney disease; I12.0 Hypertensive chronic kidney disease with stage 5 chronic kidney disease or end stage renal disease; N18.6 End stage renal disease; E03.9 Hypothyroidism, unspecified; J44.9 Chronic obstructive pulmonary disease, unspecified; Z99.2 Dependence on renal dialysis; Z79.899 Other long term (current) drug therapy
CPT/HCPCS: 36415; 93005; 93010; 99284-25

== ENCOUNTER 2022-01-08 14:13 | Emergency (ER) | payer OTHER ==
[~2022-01-08] VITALS: Ht 182.9 cm; Wt 136.1 kg
[2022-01-08] MEDS ORDERED: CEPH500 PO (16:32)
== END 2022-01-08 18:22 | disposition home or self-care (01) ==
LOC: ER 14:13
DX: S91.115A Laceration without foreign body of left lesser toe(s) without damage to nail, initial encounter (principal); W22.8XXA Striking against or struck by other objects, initial encounter; Z79.899 Other long term (current) drug therapy; Z79.82 Long term (current) use of aspirin; Z79.4 Long term (current) use of insulin; E11.22 Type 2 diabetes mellitus with diabetic chronic kidney disease; N18.6 End stage renal disease; I48.20 Chronic atrial fibrillation, unspecified; D63.1 Anemia in chronic kidney disease; I12.0 Hypertensive chronic kidney disease with stage 5 chronic kidney disease or end stage renal disease; E03.9 Hypothyroidism, unspecified; J44.9 Chronic obstructive pulmonary disease, unspecified
CPT/HCPCS: 12001; 73620; 96374; 99283-25; J0690

== ENCOUNTER 2022-08-05 13:57 | Emergency (ER) | payer OTHER ==
[~2022-08-05] VITALS: Ht 182.9 cm; Wt 136.1 kg
[~2022-08-05 13:57] MED LIST changes: +CEPH500 PO; +METR500 PO
[2022-08-05 16:23] LABS: Hematocrit 30.5 % (37.0-53.0); Hemoglobin 9.9 g/dL (13.5-17.5); Mean Corpuscular HGB 33.3 pg (26.0-34.0); Mean Corpuscular HGB Conc 32.5 g/dL (31.5-36.5); Mean Corpuscular Volume 103 fL (80-100); Platelet Count 51 K/mm3 (150-400); RDW Coefficient Variation 13.9 % (11.7-14.2); RDW Standard Deviation 52.4 fL (35.1-46.3); Red Blood Cell Count 2.97 M/mm3 (4.30-5.90)
[2022-08-05 16:30] LABS: NRBC ABSOLUTE 0.04 K/mm3 (0.00-0.02); NRBC Auto 0.7 /100 WBC (0.0-0.2); White Blood Cell Count 5.53 K/mm3 (4.00-11.30)
[2022-08-05 16:45] LABS: Influenza A, PCR NEGATIVE (NEGATIVE); Influenza B, PCR NEGATIVE (NEGATIVE); Resp Syncytial Virus, PCR NEGATIVE (NEGATIVE); SARS-Cov-2 (COVID-19) PCR, MMC NEGATIVE (NEGATIVE)
[2022-08-05 16:53] LABS: BASOPHILS PERCENT MAN 0 % (0-2); EOSINOPHILS PERCENT MAN 0 % (0-6); LYMPHOCYTES ABSOLUTE MAN 0.66 K/mm3 (0.84-5.20); LYMPHOCYTES PERCENT MAN 12 % (21-46); MONOCYTES ABSOLUTE MAN 0.27 K/mm3 (0.16-1.47); MONOCYTES PERCENT MAN 5 % (4-13); NEUTROPHILS ABSOLUTE MAN 4.58 K/mm3 (1.96-9.15); SEG NEUTROPHILS PERCENT MAN 83 % (41-73); TOTAL CELLS COUNTED 100
[2022-08-05 16:59] LABS: Albumin/Globulin Ratio 0.7 (0.8-1.8); Bilirubin, Total 0.5 mg/dL (0.1-1.0); Bun/Creatinine Ratio 6.8 (12.0-20.0); Calcium, Blood 8.1 mg/dL (8.5-10.1); Creatinine, Blood 3.24 mg/dL (0.60-1.20); Globulin, Blood 4.2 g/dL (2.2-4.0); Magnesium, Blood 2.2 mg/dL (1.6-2.4); Potassium, Blood 3.4 mmol/L (3.5-5.5); Total Protein, Blood 7.2 g/dL (6.4-8.2)
== END 2022-08-05 21:02 | disposition home or self-care (01) ==
LOC: ER 13:57
PROVIDERS: Emergency Medicine
DX: R06.02 Shortness of breath (principal); I12.0 Hypertensive chronic kidney disease with stage 5 chronic kidney disease or end stage renal disease; E11.22 Type 2 diabetes mellitus with diabetic chronic kidney disease; N18.6 End stage renal disease; E78.5 Hyperlipidemia, unspecified; Z79.4 Long term (current) use of insulin; Z99.2 Dependence on renal dialysis; Z79.899 Other long term (current) drug therapy; Z79.82 Long term (current) use of aspirin; Z20.822 Contact with and (suspected) exposure to COVID-19
CPT/HCPCS: 0241U; 71045; 80053; 83735; 84484; 85025; 93005; 93010; 94640; 94664; 99285-25

== ENCOUNTER 2022-08-08 10:14 | Inpatient (IN) | payer OTHER ==
[~2022-08-08] VITALS: Ht 193 cm; Wt 136.2 kg
[2022-08-08 10:50] LABS: BASOPHILS ABSOLUTE AUTO 0.01 K/mm3 (0.00-0.23); BASOPHILS PERCENT AUTO 0 % (0-2); EOSINOPHILS ABSOLUTE AUTO 0.01 K/mm3 (0.00-0.68); EOSINOPHILS PERCENT AUTO 0 % (0-6); Hematocrit 34.5 % (37.0-53.0); IMMATURE GRAN ABSOLUTE AUTO 0.08 K/mm3 (0.00-0.10); IMMATURE GRAN PERCENT AUTO 1 % (0-1); LYMPHOCYTES ABSOLUTE AUTO 0.48 K/mm3 (0.84-5.20); LYMPHOCYTES PERCENT AUTO 8 % (21-46); MONOCYTES ABSOLUTE AUTO 0.24 K/mm3 (0.16-1.47); MONOCYTES PERCENT AUTO 4 % (4-13); Mean Corpuscular HGB 33.5 pg (26.0-34.0); Mean Corpuscular HGB Conc 31.9 g/dL (31.5-36.5); Mean Corpuscular Volume 105 fL (80-100); NEUTROPHILS ABSOLUTE AUTO 5.43 K/mm3 (1.96-9.15); NEUTROPHILS PERCENT AUTO 87 % (41-73); NRBC ABSOLUTE 0.04 K/mm3 (0.00-0.02); NRBC Auto 0.6 /100 WBC (0.0-0.2); RDW Standard Deviation 54.1 fL (35.1-46.3); Red Blood Cell Count 3.28 M/mm3 (4.30-5.90); White Blood Cell Count 6.25 K/mm3 (4.00-11.30)
[2022-08-08 10:53] LABS: Mean Platelet Volume 13.1 fL (9.1-12.4)
[2022-08-08 11:13] LABS: Platelet Count 48 K/mm3 (150-400)
[2022-08-08 11:14] LABS: Albumin/Globulin Ratio 0.7 (0.8-1.8); Bilirubin, Total 0.4 mg/dL (0.1-1.0); Bun/Creatinine Ratio 7.6 (12.0-20.0); Creatinine, Blood 4.1 mg/dL (0.60-1.20); Globulin, Blood 4.4 g/dL (2.2-4.0); Potassium, Blood 4.5 mmol/L (3.5-5.5); Total Protein, Blood 7.4 g/dL (6.4-8.2)
[2022-08-08 11:44] LABS: Magnesium, Blood 2.3 mg/dL (1.6-2.4); Thyroid Stimulating Hormone 1.18 uIU/mL (0.360-4.800)
[2022-08-08 11:53] LABS: Base Excess Venous 6.4 mmol/L; pH Blood Venous 7.19 (7.34-7.37)
[2022-08-08 12:39] LABS: Influenza A, PCR NEGATIVE (NEGATIVE); Influenza B, PCR NEGATIVE (NEGATIVE); Resp Syncytial Virus, PCR NEGATIVE (NEGATIVE); SARS-Cov-2 (COVID-19) PCR, MMC NEGATIVE (NEGATIVE)
[2022-08-08 13:36] LABS: Base Excess Venous 7.1 mmol/L; Bicarbonate Venous 28.7 mmol/L (24.0-30.0); PCO2 Venous 89.3 mmHg (38-42)
[2022-08-08] MEDS ORDERED: MELATONIN5 M1 PO (18:34)
[2022-08-08] MEDS ORDERED: TIMDOROPSO BOTHEYES (18:36)
[2022-08-08] MEDS ORDERED: GUAI600T33 PO (18:37)
[2022-08-08] MEDS ORDERED: RENVELA800 MG PO (18:41)
--- NOTE | 2022-08-08 19:14 | NUR ---
SUMMARY Assumed care of pt on arrival to ICU 5 from emergency department at 1732. Pt alert. On BiPAP 18/06, 30%, Rate 18. Pulling off bipap mask. Large leak due to dozier. BiPAP removed and pt placed on 2 LPM NC, which is his home oxygen dosing. Speech slurred, but still mostly comprehensible. Tells this RN that he lives at [facility]. He states one of his children lives in [place]. Gives this RN permission to shave his dozier. Dozier shaved with electric razor to achieve better BiPAP seal. Pt educated on purpose of BiPAP usage. Allows this RN to place BiPAP back on and pt rests comfortably with BiPAP in place. Daughter updated by charge master coordinatorKayy. Report given to oncoming RN.
--- NOTE | 2022-08-09 03:59 | NUR ---
PT VSS. PT ABLE TO WAKE UP ENOUGH EARLIER THIS SHIFT TO TAKE HIS PO HOME MEDS. BPS STABLE THROUGHOUT THE NIGHT. PT OPENING EYES SPONTANEOUSLY AND ABLE TO FOLLOWING COMMANDS. PT DROWSY STILL BUT EASILY AROUSEABLE. BIPAP ON AND PT TOLERATING WELL.
[2022-08-09 05:38] LABS: Hemoglobin 10.9 g/dL (13.5-17.5)
[2022-08-09 05:53] LABS: Anion Gap 9 mmol/L (6-16); Blood Urea Nitrogen 41 mg/dL (8-24); Bun/Creatinine Ratio 8.8 (12.0-20.0); CO2, Blood 34 mmol/L (21-32); Calcium, Blood 8.4 mg/dL (8.5-10.1); Chloride, Blood 92 mmol/L (98-108); Creatinine, Blood 4.67 mg/dL (0.60-1.20); Glomerular Filtration Rate 12 (60-); Glucose, Blood 135 mg/dL (70-99); Magnesium, Blood 2.4 mg/dL (1.6-2.4); Phosphorus, Blood 4.6 mg/dL (2.5-4.9); Potassium, Blood 4.1 mmol/L (3.5-5.5); Sodium, Blood 135 mmol/L (136-145)
[2022-08-09 10:41] LABS: Base Excess Venous 5.4 mmol/L; Bicarbonate Venous 28.4 mmol/L (24.0-30.0); PCO2 Venous 51.9 mmHg (38-42); pH Blood Venous 7.38 (7.34-7.37)
--- NOTE | 2022-08-09 18:37 | NUR ---
SHIFT SUMMARY: NO ACUTE CHANGES THIS SHIFT. PT REMAINS SOMNOLENT, OPENS EYES TO VERBAL STIMULUS & FOLLOWS DIRECTIONS INTERMITTENTLY. HAS BEEN NONVERBAL. HAS BEEN UNABLE TO SAFELY TAKE PO MEDS THIS SHIFT R/T SOMNOLENCE/ AMS. PT ON BIPAP W/ SETTINGS: 20/10 & 30% FIO2. O2 SATS > 92% ON AVG. MONITOR SHOWS AFIB W/ HR 80-100s, HYPOTENSIVE DURING DIALYSIS W/ ALBUMIN ADMINISTERED. LEVOPHED AT BEDSIDE BUT DID NOT END UP NEEDING TO BE USED. NPO R/T BIPAP DEPENDENCE. NO VOID R/T HD. SKIN OVERALL FRAGILE, ECCHYMOTIC & EDEMATOUS. Q2H REPOSITIONING TO MAINTAIN SKIN INTEGRITY. WILL CONTINUE TO MONITOR & UPDATE NEEDED.
[2022-08-10 04:07] LABS: Hematocrit 30.6 % (37.0-53.0); Hemoglobin 10.2 g/dL (13.5-17.5)
[2022-08-10 04:37] LABS: Albumin, Blood 3.3 g/dL (3.4-5.0); Anion Gap 11 mmol/L (6-16); Blood Urea Nitrogen 49 mg/dL (8-24); Bun/Creatinine Ratio 9.8 (12.0-20.0); CO2, Blood 31 mmol/L (21-32); Calcium, Blood 8.4 mg/dL (8.5-10.1); Chloride, Blood 94 mmol/L (98-108); Creatinine, Blood 4.99 mg/dL (0.60-1.20); Glomerular Filtration Rate 11 (60-); Glucose, Blood 118 mg/dL (70-99); Magnesium, Blood 2.4 mg/dL (1.6-2.4); Phosphorus, Blood 4.3 mg/dL (2.5-4.9); Potassium, Blood 4.7 mmol/L (3.5-5.5); Sodium, Blood 136 mmol/L (136-145)
--- NOTE | 2022-08-10 04:38 | NUR ---
NO CHANGES TO PTS PREVIOUS ASSESSMENTS. NO SIGNIFICANT EVENTS OVERNIGHT. VSS. BPS MAINTAINED. PT TOLERATING BIPAP.
[2022-08-10 08:18] LABS: Base Excess Venous 4.4 mmol/L; Bicarbonate Venous 27.6 mmol/L (24.0-30.0); PCO2 Venous 45.3 mmHg (38-42); pH Blood Venous 7.41 (7.34-7.37)
--- NOTE | 2022-08-10 08:30 | NUR ---
ASSUMED CARE / DR PORTILLO: REPORT RECEIVED FROM JAIME SHANE. ASSUMED CARE OF THIS PT AT APPROX [id number]. ON ASSESSMENT, THE PT REMAINS SOMNOLENT. HE OPENS EYES WHEN PROMPTED NUMEROUS TIMES BUT IS NOT FOLLOWING DIRECTIONS OR VERBALLY RESPONDING. LS DIM T/O, BIPAP IN PLACE W/ SETTINGS: 20/10 & 30% FIO2. MONITOR SHOWS AFIB W/ PVCs, HR 90-120s, BP STABLE W/ SBP 100s. NPO R/T BIPAP USE & SOMNOLENCE. PT ANURIC R/T ESRD/ HD. HD SCHEDULED FOR THIS AM. SKIN OVERALL INTACT, REDDENED AREA TO COCCYX & EDEMA NOTED T/O. Q2H REPOSITIONING TO MAINTAIN SKIN INTEGRITY. DR PORTILLO AT BEDSIDE THIS AM. SHE STS OKAY TO TRIAL THE PT OFF OF BIPAP DURING THIS SHIFT HIS VBG FROM THIS AM IS IMPROVING, WILL NOTIFY RT. NO OTHER CHANGES NOTED AT THIS TIME. WILL CONTINUE TO MONITOR & UPDATE NEEDED.
[2022-08-10 13:10] LABS: HBSAG SCREEN Negative (Negative)
--- NOTE | 2022-08-10 13:18 | NUR ---
Spoke to pt's daughter Chela today after ICU rounds. The pt has been on dialysis for 3 years per daughter, and has lived at [facility] for around the same length of time. Per Chela, pt normally "zips around on his scooter" and at baseline "only wears oxygen at night". She states if pt does not improve from his current state, they will elect to place him on comfort care and return him to [facility]. I have discussed this with both bedside RN Tamera, and Dr. Romero. Palliative Care to remain involved.
--- NOTE | 2022-08-10 18:44 | NUR ---
SHIFT SUMMARY: THE PT CONTINUES TO BE IMPROVING THIS AFTERNOON. HE IS NOW MORE ALERT W/ EYES OPEN, WATCHING TV & TRACKING STAFF W/ EYES. HE WILL ANSWER SIMPLE QUESTIONS VERBALLY BUT BECOMES OVERWHELMED/ CONFUSED AT TIMES. HE DOES NOT REMEMBER COMING TO THE HOSPITAL & DOES REQUIRE REORIENTATION REGARDING THIS. LS DIM, PT ON 3L NC W/ O2 SATS > 92%. MONITOR SHOWS AFIB W/ PVCs, HR 110-130s, SBP 80s. PT ABLE TO TAKE PO MIDODRINE THIS EVENING WHOLE IN APPLESAUCE. NO BM THIS SHIFT. ANURIC R/T ESRD & HD. SKIN OVERALL FRAGILE, EDEMATOUS. Q2H REPOSITIONING TO MAINTAIN SKIN INTEGRITY. WILL CONTINUE TO MONITOR & REPORT OFF TO ONCOMING RN.
[2022-08-11 03:29] LABS: Hematocrit 31.9 % (37.0-53.0); Hemoglobin 10.6 g/dL (13.5-17.5)
[2022-08-11 04:22] LABS: Albumin, Blood 3.5 g/dL (3.4-5.0); Anion Gap 11 mmol/L (6-16); Blood Urea Nitrogen 45 mg/dL (8-24); Bun/Creatinine Ratio 10.3 (12.0-20.0); CO2, Blood 31 mmol/L (21-32); Calcium, Blood 8.6 mg/dL (8.5-10.1); Chloride, Blood 96 mmol/L (98-108); Creatinine, Blood 4.35 mg/dL (0.60-1.20); Glomerular Filtration Rate 13 (60-); Glucose, Blood 137 mg/dL (70-99); Magnesium, Blood 2.2 mg/dL (1.6-2.4); Phosphorus, Blood 3.2 mg/dL (2.5-4.9); Potassium, Blood 3.7 mmol/L (3.5-5.5); Sodium, Blood 138 mmol/L (136-145)
--- NOTE | 2022-08-11 09:30 | NUR ---
PT A/O TO PERSON, PLACE, AND EVENTS. TAKES PILLS WITH APPLESAUCE WITHOUT DIFFICULTY. RECOGNIZES PILLS GIVEN AND CAN NAME THEM. WEAK T/O. SOLUMEDROL GIVEN THIS AM FOR WHEEZING/COARSE LUNGS. CXR DONE WELL. PT TAKEN TO DIALYSIS VIA BED, NO SIGN OF DISTRESS.
--- NOTE | 2022-08-11 17:56 | NUR ---
SUMMARY PT A/O TO PERSON, PLACE, AND SOME EVENTS. ASKING APPROPRIATE QUESTIONS. DIALYSIS TODAY AND PT TOLERATED WELL. DID BEDSIDE SWALLOW EVAL TONIGHT PER DR. PORTILLO AND PT PASSED. ORDERED DINNER TRAY BUT PT HAS NOT BEEN VERY HUNGRY. PT ABLE TO ASSIST WITH REPOSITIONING IN BED. PT MOVING TO PCU 13 VIA BED. NO SIGN OF DISTRESS PT LEAVES THE UNIT. REPORT GIVEN TO CINDI SANDOVAL.
--- NOTE | 2022-08-11 18:24 | NUR ---
ASSUMPTION OF CARE: PT ARRIVES TO PCU ALERT, ORIENTED TO SELF, LOCATION AND SOME SITUATION. PT SLID OVER TO NEW BED W/ASSISTANCE OF STAFF. O2 SATS >92% ON 2 L/MIN NC, PT DENIES SOB. AFIB ON MONITOR, RATE 110s, PT DENIES CP. PT ORIENTED TO ROOM AND CALL LIGHT SYSTEM, V/U. WILL CONTINUE TO MONITOR AND TREAT ACCORDINGLY UNTIL CHANGE OF SHIFT.
--- NOTE | 2022-08-11 23:01 | NUR ---
ASSUMPTION OF CARE CARE ASSUMED FROM CINDI RN. WHEN COMING ONTO THE SHIFT THE PT WAS SITTING UP IN BED EATING DINNER IND. HIS HR WAS 130'S-150'S AFIB. NOTIFIED AND ORDERED 5MG LOPRESSOR IV. WHEN THE MEDICATION GOT VERIFIED BY PHARMACY I REASSESSED HIS VS AND HIS BP WAS ALL OVER THE PLACE AND HIS HR WAS RANGING FROM 90'S-110'S. WITH CLINICAL JUDGMENT, I DECIDED TO MONITOR HIM FOR ANOTHER HOUR. HIS HR IS NOW SUSTAINING 70'S-90'S AFIB. IT APPEARS THAT HE TACH'S UP WHEN EATING. WILL CONTINUE TO MONITOR UNTIL SHIFT REPORT IS GIVEN TO THE ONCOING SHIFT RN. SEE NOTES FOR ANY UPDATES.
--- NOTE | 2022-08-12 05:16 | NUR ---
SHIFT SUMMARY PT IS A&OX3, AFIB 90'S-100'S ON TELE, SPO2>94% ON 3L NC, Q2 TURN IN BED, HAS NOT VOIDED OR HAD BM THIS SHIFT, AND CALLS APPROPRIATELY. HE HAD AN EVENT OF ELEVATED HR AT THE BEGINING OF THE SHIFT. SEE PREVIOUS NOTE FOR MORE INFORMATION. PT HAS DENIED ANGINA/CHEST PRESSURE, SOB, PAIN, AND N/V/D. HIS DAUGHTER CALLED AND WAS UPDATED THIS AM ON THE PT'S CONDITION. BED IS IN LOW, CALL LIGHT IS IN REACH, AND BED ALARM IS ON. WILL CONTINUE TO MONITOR UNTIL SHIFT REPORT IS GIVEN TO THE ONCOMING SHIFT RN. SEE NOTES FOR MORE INFORMATION.
--- NOTE | 2022-08-12 08:15 | NUR ---
NURSING PCU DAYSHIFT: Assumed care of pt at approx 0700. Alert, forgetful at times, flat affect, slow to respond though able to follow commands. Denies any pain/discomfort at rest. Requires assistance w/all ADL's. Skin pale w/scattered bruising, B/L toes red w/scabs, reddened area reported to coccyx. Tele in place, afib w/HR 90-100, no c/o CP/pressure, SBP 122 prior to a.m. meds, 1+ RLE edema. L/S coarse in upper lobes, dim in mid/lower lobes, respirations shallow, occ weak cough producing small amts of thick sputum. Abd SNT, BT+, anuric d/t hx of CKD. PIV x2, s/l. No s/s of acute distress this a.m. Pt currently sitting up having breakfast after tray set up. Denies any current needs or questions regarding plan of care, HD planned for tomorrow a.m., Q2 turn schedule for pressure ulcer prevention. Call light in reach and pt demonstrated ability to use though frequent rounding required d/t forgetfullness. Awaiting rounding from PMD, cont to monitor for any changes.
--- NOTE | 2022-08-12 12:55 | NUR ---
Met with pt, his daughter Chela at bedside and son Brody by phone. Earlier today, Dr. Romero spoke with daughter Chela and pt regarding latest test results. Re-reviewed results with Brody, and at this time pt stated he would be willing to stay in hospital for further testing, when earlier he had insisted on returning to [facility] today. Pt's son Brody asked several questions, and we had a lewis discussion about hospice vs home health, continuing vs not continuing dialysis, as well as receiving input from the patient, who has again changed his mind, and states he is willing to "stay in the hospital a while longer; figure out whats with me". Dr. Romero is aware of this newer conversation, and will order 1st part of stress test to be done today, 2nd half to be completed tomorrow. Will re-evaluate after stress test.
--- NOTE | 2022-08-12 17:48 | NUR ---
NURSING PCU DAYSHIFT SUMMARY: Pt has been sleepy t/o the shift and continues to experience intermittent forgetfulness though remains fairly cooperative w/care. Continues to deny any pain/discomfort. Very weak though able to assist w/some ADL's w/verbal direction. Family and s/o at bedside intermittently t/o the shift, questions addressed, plan of care discussed. Palliative care met w/daughter and pt to discuss disease process and pt's wishes, plan to continue tx at this time, see palliative care note for full rpt. This afternoon pt appears to have increased tremors and jerking movements of UE's, PMD notified, new d/o for a.m. labs placed. Pt currently denies any needs, no s/s of acute distress. Respiratory status unchanged and O2 sat remains stable on 2L NC. Call light in reach though frequent rounding maintained. Cont to monitor until rpt is given to RODRI RN.
[2022-08-13 04:28] LABS: Hematocrit 29.1 % (37.0-53.0); Hemoglobin 9.6 g/dL (13.5-17.5); Mean Corpuscular HGB 33.7 pg (26.0-34.0); Mean Corpuscular Volume 102 fL (80-100); Mean Platelet Volume 12.4 fL (9.1-12.4); NRBC ABSOLUTE 0.08 K/mm3 (0.00-0.02); NRBC Auto 0.4 /100 WBC (0.0-0.2); Platelet Count 64 K/mm3 (150-400); RDW Standard Deviation 52.7 fL (35.1-46.3); Red Blood Cell Count 2.85 M/mm3 (4.30-5.90); White Blood Cell Count 19.52 K/mm3 (4.00-11.30)
[2022-08-13 04:48] LABS: Albumin, Blood 3.4 g/dL (3.4-5.0); Anion Gap 11 mmol/L (6-16); Blood Urea Nitrogen 115 mg/dL (8-24); CO2, Blood 33 mmol/L (21-32); Calcium, Blood 8.8 mg/dL (8.5-10.1); Chloride, Blood 93 mmol/L (98-108); Creatinine, Blood 6.78 mg/dL (0.60-1.20); Glomerular Filtration Rate 8 (60-); Glucose, Blood 195 mg/dL (70-99); Magnesium, Blood 2.7 mg/dL (1.6-2.4); Potassium, Blood 4.5 mmol/L (3.5-5.5); Sodium, Blood 137 mmol/L (136-145)
--- NOTE | 2022-08-13 06:03 | NUR ---
SHIFT SUMMARY PT IS A/Ox2 AND IS PLEASANTLY CONFUSED T/O MOST OF THE SHIFT. THE PT CONTINUES TO THINK HE IS STILL AT [facility] AND ASKS TO BE "PUT BACK IN HIS ROOM" OR "PUT ME ON THE GROUND SO I CAN SCOOT TO MY ROOM". MAINTAINED SPO2 >90% ON 2L VIA NC WITH NO SOB OR DYSPNEA NOTED AT REST. LS DIMMINISHED IN THE BASES WITH RR RANGING FROM 18-24. CARDIAC ANG, PT CONTINUES TO BE IN AFIB WITH A HR RANGING 90-120'S. SBP HAS TRENDED DOWN T/O THE SHIFT, BUT LOOKING AT HIS VS HX THIS BEHAVIOR HAS HAPPENED BEFORE. WILL CONTINUE TO MONITOR HOWEVER. NO CP OR PRESSURE REPORTED. PT SHOULD RECEIVE HD TODAY AFTER STRESS TEST THIS AM. PT HAS BEEN NPO SINCE MDN. PT REPOSITIONED Q2HR ORDERD. VSS, NADN T/O THE SHIFT
--- NOTE | 2022-08-13 18:13 | NUR ---
SHIFT SUMMARY PT ALERT, CAN ANSWER MOST QUESTIONS APPROPRIATELY, SLOW TO RESPOND AND SOME TIMES WITH DRY SARCASM. PT SOMEWHAT LETHARGIC THIS AFTERNOON BUT ALERT AGAIN CURRENTLY. SP02>90% ON 2L NC. TELEMETRY READ AFIB W/ BIGEM PVC'S, HR MOSTLY 90'S-100'S. PT HAD FIRST PORTION OF STRESS TEST THIS AM. PT WENT TO DIALYSIS TODAY, HAD SOME ISSUES W/ HYPOTENSION. BP HAS BEEN SOFT THIS SHIFT, MIDODRINE GIVEN PER EMAR. PT HAD ONE LOOSE VERY DARK, TARRY BM THIS EVENING. C/D ATTENDS IN PLACE. BED BATH GIVEN THIS SHIFT. SPOKE TO DAUGHTER, RIO, AND GIVEN UPDATE. DAUGHTER ANXIOUS TO KNOW WHEN PT CAN RETURN TO [facility]. CALL LIGHT IN REACH. PT RESTING IN ROOM WATCHING TV.
[2022-08-14 06:03] LABS: Hematocrit 30.8 % (37.0-53.0); Hemoglobin 9.7 g/dL (13.5-17.5)
--- NOTE | 2022-08-14 06:07 | NUR ---
SHIFT SUMMARY PT IS A/Ox2 AND IS COOPERATIVE WITH CARE PROVIDED BY STAFF. PT CONTINUES TO BE SLEEPY AND FORGERTFULL T/O THE NIGHT, BUT IS EASILY AROUSABLE TO TACTILE/VERBAL STIMULI. MAINTAINED SPO2 >90% ON HIS BASLINE OF 2L VIA NC WHILE LAYING IN THE FOWLERS POSITION, BUT WOULD DESAT WHEN LAYING ON HIS SIDE. PT HAS BEEN COUGHING THICK YELLOW SPUTUM THAT HAS BEEN SUCTIONED OUT ROUTINELY. CARDIAC ANG, REMAINS IN AFIB RHYTHM RANGING FROM THE 60-80'S WITH MULTIFOCAL PVC'S ACCORDING TO PILOT SAFETY INSPECTOR. PRESSURES CONTINUE TO BE SOFT WITH SBP RANGING FROM UPPER 80'S TO LOW 100'S. HAD 2 DARK BROWN STOOLS LAST NIGHT. PT FREQUENTLY REPOSITIONED TO PREVENT ANY MORE SKIN BREAKDONW ON COCCY, MEPLIX IN PLACE. WILL REPORTED INFORMATION TO DAY SHIFT RN. DIONICIO T/O THE SHIFT
[2022-08-14 07:01] LABS: Magnesium, Blood 2.8 mg/dL (1.6-2.4)
[2022-08-14 07:02] LABS: Albumin, Blood 3.4 g/dL (3.4-5.0); Anion Gap 6 mmol/L (6-16); Blood Urea Nitrogen 92 mg/dL (8-24); CO2, Blood 35 mmol/L (21-32); Calcium, Blood 8.5 mg/dL (8.5-10.1); Chloride, Blood 101 mmol/L (98-108); Glomerular Filtration Rate 10 (60-); Glucose, Blood 146 mg/dL (70-99); Potassium, Blood 4.3 mmol/L (3.5-5.5); Sodium, Blood 142 mmol/L (136-145)
--- NOTE | 2022-08-14 11:45 | NUR ---
RECEVIED CALL FROM PCU CHARGE NURSE, PT HAS SUDDENLY BECOME UNRESPONSIVE TO BERBAL AND PAINFUL STIMULI WITH DECREASED RESP EFFORT. REQUESTING APLLIATIVE CARE TO ASSESS AND CALL FAMILY WITH UPDATE ON PT STATUS AND VERIFY PT CODE STATUS. PT IN ROOM, WITH HOB ELEVATED, SKIN PALE. PT DOES NOT RESPOND TO STERNAL RUB, DEEP SUCTIONING OR VERBAL STIMULUS. PT BREATHING SHALLOW WITH OCCASIONAL GASPS. ADVISED I WILL CONTACT THE DAUGHTER. CALL PLACED TO PT DAUGHTER, ADVISED HER THAT HER FATHER'S CONDITION HAS SUDDENLY DECLINED AND HE IS UNRESPONSIVE. DAUGHTER REPORTS THAT SHE WANTS TO HONOR HER FATHERS WISHES AND THAT HE DOES NOT WANT CPR OR HEROIC MEASURES. SHE REPORTS SHE LIVES IN [place] AND WILL BE HERE SOON SHE CAN, ADVISED HER TO DRIVE SAFELY. UPDATED PCU CHARGE NURSE THAT PT DAUGHTER WISHES TO HONOR HER FATHER'S POLST AND WISHES. PLAN TO FOLLOW DNR ON POLST. PT RESP STATUS CONTINUES TO DECLINE, INITIALLY PT WAS TO BE PLACED ON BIPAP, BUT IS UNBALE TO PROTECT AIRWAY. PCU CN PLACED ANOTHER CALL TO PT DAUGHTER AND DAUGHTER DECLINES BIPAP FOR HER FATHER AND JUST WANTS HIM TO BE COMFORTABLE. CALL PLACED TO DR ALSTON, VO GIVEN TO PLACE PT ON CONFORT CARE AT THIS TIME AND ORDERS ARE PLACED.
[2022-08-14 11:56] LABS: Base Excess Venous 1.6 mmol/L; Bicarbonate Venous 23.6 mmol/L (24.0-30.0); PCO2 Venous 103 mmHg (38-42); pH Blood Venous 7.09 (7.34-7.37)
--- NOTE | 2022-08-14 13:51 | NUR ---
UPDATE UPON CARE ASSUMPTION, PT SLEEPING BUT ABLE TO WAKE TO VERBAL STIMULI. ABLE TO ANSWER QUESTIONS, SWALLOW PILLS W/ APPLESAUCE. SP02>90% ON 2-3L NC. TELEMETRY SHOWED AFIB, BP SOFT. STRESS TEST NURSES IN ROOM THIS AM TO ADMINISTER 2ND PORTION OF STRESS TEST. PT DOWN TO STRESS TEST SCAN W/ NURSES. WHEN PT RETURNED TO ROOM VIA STRETCHER, SLID BY 4 STAFF TO PT'S BED FROM IMAGING STRETCHER. PT LETHARGIC, REQUIRING 6L NC TO STAY 88-90%. RT CALLED. MD ALSTON NOTIFIED. MD ALSTON TO ROOM TO ASSESS PT. PT BREATHING SHALLOW, UNABLE TO CLEAR SECRETIONS. PT DOES NOT RESPOND TO STERNAL RUB DURING ASSESSMENT. MD ALSTON W/ ORDERS FOR ABG, CHEST XRAY, SEE LABS. CBG CHECKED: 190. PT'S VBG CAME BACK CRITICAL, SEE LABS. RT IN ROOM, CHECKS PT GAG REFLEX AND PT DOES NOT HAVE ONE. CHARGE NURSE IN ROOM, PALLIATIVE NOTIFIED TO CALL FAMILY. DAUGHTER RIO, STATES TO HONOR PT'S POLST, DO NOT INTUBATE AND DO NOT PUT ON BIPAP. PT'S DAUGHTER RIO STATES TO MAKE PT COMFORT CARE. PT TRANSITIONED TO COMFORT CARE W/ ORDERS FROM MD ALSTON. 5 MG ROXANOL GIVEN X2 FOR AGONAL BREATHING. PT'S DAUGHTER IN ROOM WHEN PT PASSED, ALONG WITH THIS RN AND CHARGE NURSE. TOD [id number].
== END 2022-08-14 15:18 | DRG 291 ==
LOC: ER 10:14 → ERHOLD 13:36 → ICUE 13:36 → PCU 13:36 → ICUE 17:31 → PCU 08-11 17:54
PROVIDERS: Internal Medicine Nephrology; Student in an Organized Health Care Education/Training Program; ADMIT Internal Medicine
PROC: 3E033XZ Introduction of Vasopressor into Peripheral Vein, Percutaneous Approach (ICD-10-PCS; principal; 2022-08-08)
PROC: 5A09457 Assistance with Respiratory Ventilation, 24-96 Consecutive Hours, Continuous Positive Airway Pressure (ICD-10-PCS; 2022-08-08)
PROC: 5A1D70Z Performance of Urinary Filtration, Intermittent, Less than 6 Hours Per Day (ICD-10-PCS; 2022-08-10)
DX: I13.2 Hypertensive heart and chronic kidney disease with heart failure and with stage 5 chronic kidney disease, or end stage renal disease (principal); G93.41 Metabolic encephalopathy; J96.02 Acute respiratory failure with hypercapnia; I50.21 Acute systolic (congestive) heart failure; N18.6 End stage renal disease; J96.01 Acute respiratory failure with hypoxia; I48.20 Chronic atrial fibrillation, unspecified; N25.81 Secondary hyperparathyroidism of renal origin; E87.1 Hypo-osmolality and hyponatremia; J44.1 Chronic obstructive pulmonary disease with (acute) exacerbation; E11.22 Type 2 diabetes mellitus with diabetic chronic kidney disease; Z51.5 Encounter for palliative care; Z66 Do not resuscitate; D63.1 Anemia in chronic kidney disease; I27.20 Pulmonary hypertension, unspecified; E78.5 Hyperlipidemia, unspecified; E03.9 Hypothyroidism, unspecified; M54.9 Dorsalgia, unspecified; G89.29 Other chronic pain; I71.21 Aneurysm of the ascending aorta, without rupture; Z20.822 Contact with and (suspected) exposure to COVID-19; D69.6 Thrombocytopenia, unspecified; E88.09 Other disorders of plasma-protein metabolism, not elsewhere classified; E66.9 Obesity, unspecified; Z91.15 Patient's noncompliance with renal dialysis; Z79.02 Long term (current) use of antithrombotics/antiplatelets; Z79.899 Other long term (current) drug therapy; Z79.82 Long term (current) use of aspirin; Z99.2 Dependence on renal dialysis; Z79.891 Long term (current) use of opiate analgesic; Z79.4 Long term (current) use of insulin; Z79.2 Long term (current) use of antibiotics; Z99.81 Dependence on supplemental oxygen; Z85.46 Personal history of malignant neoplasm of prostate; Z98.890 Other specified postprocedural states; Z95.818 Presence of other cardiac implants and grafts; Z87.891 Personal history of nicotine dependence; Z68.34 Body mass index [BMI] 34.0-34.9, adult
CPT/HCPCS: 0241U; 36415; 70450; 71045; 78452; 80053; 80069; 82140; 82803; 82947; 83605; 83735; 84132; 84145; 84443; 85014; 85018; 85025; 85027; 87340; 93005; 93010; 93017; 93306; 93971; 94640; 94644; 94660; 94664; 94760; 94762; 96374; 99285-25; A9270; A9500; J0280; J0881; J1644; J1815; J2785; J2920; J2930; P9047